=== PATIENT | female | born 1940 | race Caucasian/White ===

== ENCOUNTER → 2016-12-03 | Outpatient (CLI) | payer MEDICARE ==
[~2016-12-03] MED LIST: /AMIO20TA; ACET-71 PO; ACET65TA; ASPI81CH PO; ATOR1TAB21 PO; CALCCHW12; CETIRIZINE; CITRTAB15 PO; CLON0.5T; CODE30TA3 PO; FOSA5TAB; GLYC3350 PO; LODINE; MIRAPEX; OXYB5TAB4; PLAV75TA38 PO; POTA20TA2; SYNT112T; THERGRAN; VARE1TA PO; VENL37.5; VITA500T; ZEBE5TAB
[2016-12-03 07:21] LABS: MEAN CORPUSCULAR HEMOGLOBIN 32.7 pg (27.0-33.0); MEAN CORPUSCULAR HGB CONC 32.1 g/dl (32.0-36.5); MEAN CORPUSCULAR VOLUME 101.9 fl (80.0-96.0); WHITE BLOOD COUNT 9.3 K/mm3 (4.0-10.0)
[2016-12-03 07:58] LABS: ALBUMIN 3.5 GM/DL (3.2-5.2); ALBUMIN/GLOBULIN RATIO 0.95 (1.00-1.93); ALKALINE PHOSPHATASE 115 U/L (45-117); ALT/SGPT 25 U/L (12-78); ANION GAP 8 MEQ/L (8-16); AST/SGOT 23 U/L (15-37); BILIRUBIN,TOTAL 0.3 MG/DL (0.2-1.0); BLOOD UREA NITROGEN 18 MG/DL (7-18); CALCIUM LEVEL 8.8 MG/DL (8.8-10.2); CARBON DIOXIDE LEVEL 24 MEQ/L (21-32); CHLORIDE LEVEL 110 MEQ/L (98-107); CHOLESTEROL LEVEL 125 MG/DL (<200); CREATININE FOR GFR 0.73 MG/DL (0.55-1.02); FREE T4 1.63 NG/DL (0.76-1.46); GLOMERULAR FILTRATION RATE > 60.0 (>39); GLUCOSE, FASTING 89 MG/DL (83-110); POTASSIUM SERUM 4.1 MEQ/L (3.5-5.1); SODIUM LEVEL 142 MEQ/L (136-145); TOTAL PROTEIN 7.2 GM/DL (6.4-8.2); TRIGLYCERIDES LEVEL 64 MG/DL (<150)
== END ==
LOC: M LAB 06:25
PROVIDERS: ATTEND Hospitalist
DX: R53.83 Other fatigue (principal); E03.9 Hypothyroidism, unspecified; E78.00 Pure hypercholesterolemia, unspecified

== ENCOUNTER 2016-12-05 18:21 | Emergency (ER) | payer MEDICARE ==
[~2016-12-05] VITALS: Ht 162.6 cm; Wt 54.9 kg
[~2016-12-05 18:21] MED LIST changes: -ACET-71 PO; -ASPI81CH PO; -ATOR1TAB21 PO; -CITRTAB15 PO; -CODE30TA3 PO; -GLYC3350 PO; -PLAV75TA38 PO; -VARE1TA PO
[2016-12-05] MEDS ORDERED: VARE1TA PO (18:33)
[2016-12-05] MEDS ORDERED: PLAV75TA38 PO (18:33)
[2016-12-05] MEDS ORDERED: GLYC3350 PO (18:33)
[2016-12-05] MEDS ORDERED: CITRTAB15 PO (18:33)
[2016-12-05] MEDS ORDERED: ATOR1TAB21 PO (18:33)
[2016-12-05] MEDS ORDERED: ASPI81CH PO (18:33)
[2016-12-05] MEDS ORDERED: ACETAMINOPH W/CODEINE #3 TAB UD PO ONE (19:00)
[2016-12-05] MEDS ORDERED: ACET-71 PO (19:29)
[2016-12-05] MEDS ORDERED: CODE30TA3 PO (19:31)
[2016-12-05 20:09] VITALS: BP 138/74
--- NOTE | 2016-12-06 12:36 | REP ---
RIGHT FOOT: HISTORY: Pain after trauma. COMPARISON: 12/13/2007. The bones have undergone a certain degree of bony demineralization since the last exam. The degenerative changes seen on the prior exam have increased slightly. This particularly affects the first metatarsophalangeal joint where there is irregular joint space narrowing and osteophytosis. There is no evidence of an acute fracture. IMPRESSION: Chronic changes as described above. Signed by Jamie Jovel DO 12/06/2016 01:32 P
== END 2016-12-05 20:10 | disposition home or self-care (01) ==
LOC: M ED 19:30
DX: S90.31XA Contusion of right foot, initial encounter (principal); X50.0XXA Overexertion from strenuous movement or load, initial encounter; Y92.018 Other place in single-family (private) house as the place of occurrence of the external cause; Y93.89 Activity, other specified; Y99.8 Other external cause status; I48.91 Unspecified atrial fibrillation; I25.10 Atherosclerotic heart disease of native coronary artery without angina pectoris; E07.9 Disorder of thyroid, unspecified; Z79.899 Other long term (current) drug therapy; Z79.82 Long term (current) use of aspirin; Z79.02 Long term (current) use of antithrombotics/antiplatelets; Z88.0 Allergy status to penicillin; Z88.5 Allergy status to narcotic agent; F17.210 Nicotine dependence, cigarettes, uncomplicated

== ENCOUNTER → 2018-02-15 | Outpatient (REF) | payer MEDICARE ==
[2018-02-15 16:21] LABS: BLOOD UREA NITROGEN 12 MG/DL (7-18)
[2018-02-15 16:21] LABS: CREATININE FOR GFR 0.61 MG/DL (0.55-1.30); GLOMERULAR FILTRATION RATE > 60.0 (>39)
== END ==
LOC: M LABDRAW1 14:06
DX: I70.411 Atherosclerosis of autologous vein bypass graft(s) of the extremities with intermittent claudication, right leg (principal)
CPT/HCPCS: 82565

== ENCOUNTER → 2018-03-12 | Outpatient (REF) | payer MEDICARE ==
[2018-03-12 17:29] LABS: BASO # 0.1 10^3/uL (0.0-0.2); BASO % 0.9 % (0.0-1.0); EOS # 0.2 10^3/uL (0.0-0.50); EOS % 2.6 % (0.0-3.0); HEMATOCRIT 33.8 % (36.0-47.0); IMMATURE GRANULOCYTE % 0.3 % (0-3.0); LYMPH # 1.8 10^3/uL (1.5-4.5); LYMPH % 25.4 % (24.0-44.0); MEAN CORPUSCULAR HEMOGLOBIN 29.4 pg (27.0-33.0); MEAN CORPUSCULAR HGB CONC 32.5 g/dl (32.0-36.5); MEAN CORPUSCULAR VOLUME 90.4 fl (80.0-96.0); MONO # 0.9 10^3/uL (0.0-0.8); MONO % 12.6 % (0.0-5.0); NEUTROPHILS % 58.2 % (36.0-66.0); PLATELET COUNT, AUTOMATED 214 10^3/uL (150-450); RED BLOOD COUNT 3.74 10^6/uL (4.00-5.40); RED CELL DISTRIBUTION WIDTH 15.9 % (11.5-14.5); WHITE BLOOD COUNT 6.9 10^3/uL (4.0-10.0)
[2018-03-12 17:30] LABS: ANION GAP 7 MEQ/L (8-16); BLOOD UREA NITROGEN 16 MG/DL (7-18); CALCIUM LEVEL 8.3 MG/DL (8.8-10.2); CARBON DIOXIDE LEVEL 26 MEQ/L (21-32); CHLORIDE LEVEL 109 MEQ/L (98-107); CREATININE FOR GFR 0.65 MG/DL (0.55-1.30); GLOMERULAR FILTRATION RATE > 60.0 (>39); GLUCOSE, FASTING 81 MG/DL (70-100); POTASSIUM SERUM 4.1 MEQ/L (3.5-5.1); SODIUM LEVEL 142 MEQ/L (136-145)
[2018-03-12 17:50] LABS: INR 0.97
[2018-03-12 17:51] LABS: PARTIAL THROMBOPLASTIN TIME 28.7 SECONDS (25.4-37.6)
== END ==
LOC: M LABDRAW1 16:46
DX: Z01.818 Encounter for other preprocedural examination (principal); D69.8 Other specified hemorrhagic conditions
CPT/HCPCS: 80048

== ENCOUNTER 2018-03-28 10:36 | Inpatient (IN) | payer MEDICARE ==
[2018-03-28 11:24] LABS: BASO % 0.4 % (0.0-1.0); EOS # 0.1 10^3/uL (0.0-0.50); EOS % 1.6 % (0.0-3.0); HEMATOCRIT 20.9 % (36.0-47.0); IMMATURE GRANULOCYTE % 0.4 % (0-3.0); LYMPH # 1.3 10^3/uL (1.5-4.5); LYMPH % 17.5 % (24.0-44.0); MEAN CORPUSCULAR HEMOGLOBIN 29.8 pg (27.0-33.0); MEAN CORPUSCULAR HGB CONC 32.1 g/dl (32.0-36.5); MEAN CORPUSCULAR VOLUME 92.9 fl (80.0-96.0); MONO # 0.8 10^3/uL (0.0-0.8); MONO % 10.4 % (0.0-5.0); NEUTROPHILS # 5.2 10^3/uL (1.8-7.7); NEUTROPHILS % 69.7 % (36.0-66.0); PLATELET COUNT, AUTOMATED 242 10^3/uL (150-450); RED BLOOD COUNT 2.25 10^6/uL (4.00-5.40); RED CELL DISTRIBUTION WIDTH 17.2 % (11.5-14.5); WHITE BLOOD COUNT 7.5 10^3/uL (4.0-10.0)
[2018-03-28 11:37] LABS: HEMOGLOBIN 6.7 g/dl (12.0-15.5); INR 0.97
[2018-03-28 11:38] LABS: PARTIAL THROMBOPLASTIN TIME 26.6 SECONDS (25.4-37.6)
[2018-03-28 11:51] LABS: ANION GAP 9 MEQ/L (8-16); BLOOD UREA NITROGEN 21 MG/DL (7-18); CARBON DIOXIDE LEVEL 22 MEQ/L (21-32); CHLORIDE LEVEL 107 MEQ/L (98-107); CK-MB VALUE MASS < 1.0 NG/ML (<3.6); CPK CREATINE PHOSPHOKINASE 50 U/L (26-192); CREATININE FOR GFR 0.57 MG/DL (0.55-1.30); GLOMERULAR FILTRATION RATE > 60.0 (>39); GLUCOSE, FASTING 97 MG/DL (70-100); POTASSIUM SERUM 3.9 MEQ/L (3.5-5.1); SODIUM LEVEL 138 MEQ/L (136-145); TROPONIN I 0.05 NG/ML (< 0.10)
[2018-03-28] MEDS: PANTOPRAZOLE SODIUM 40 MG in D5W 50 ML IV ×3 (12:26→22:29)
[2018-03-28] MEDS: PANTOPRAZOLE 40MG INJ (PROTONIX) (C9113) IV (12:26)
[2018-03-28] MEDS: ONDANSETRON 4MG/2ML VIAL (J2405) IV (12:45)
[2018-03-28 14:09] LABS: IMMEDIATE SPIN CROSSMATCH 1 2
[2018-03-28] MEDS: NS 1,000 ML IV (14:51)
[2018-03-28] MEDS ORDERED: ONDANSETRON 4 MG TAB (S0181) PO (15:00)
[2018-03-28] MEDS ORDERED: ONDANSETRON 4MG/2ML VIAL (J2405) IV (15:00)
[2018-03-28 17:18] LABS: HEMATOCRIT 25.7 % (36.0-47.0); HEMOGLOBIN 8.5 g/dl (12.0-15.5)
[2018-03-28 17:35] LABS: CK-MB VALUE MASS < 1.0 NG/ML (<3.6); CPK CREATINE PHOSPHOKINASE 32 U/L (26-192); MB/CK RELATIVE INDEX 3.12 (< OR =4); TROPONIN I 0.06 NG/ML (< 0.10)
[2018-03-28] MEDS: LORazepam 2 MG/ML VIAL (J2060) IV ×2 (21:16→22:49)
[2018-03-28 21:29] LABS: HEMATOCRIT 27.9 % (36.0-47.0); HEMOGLOBIN 9.1 g/dl (12.0-15.5)
[2018-03-29 02:04] LABS: HEMATOCRIT 24.7 % (36.0-47.0); HEMOGLOBIN 8.1 g/dl (12.0-15.5)
[2018-03-29 02:31] LABS: CK-MB VALUE MASS 1.4 NG/ML (<3.6); CPK CREATINE PHOSPHOKINASE 47 U/L (26-192); MB/CK RELATIVE INDEX 2.97 (< OR =4); TROPONIN I 0.06 NG/ML (< 0.10)
[2018-03-29] MEDS: NS 1,000 ML IV ×3 (02:49→14:51)
[2018-03-29] MEDS: PANTOPRAZOLE SODIUM 40 MG in D5W 50 ML IV ×5 (03:27→22:45)
[2018-03-29 06:10] LABS: BASO # 0.1 10^3/uL (0.0-0.2); BASO % 0.8 % (0.0-1.0); EOS # 0.2 10^3/uL (0.0-0.50); EOS % 2.9 % (0.0-3.0); HEMATOCRIT 25.4 % (36.0-47.0); HEMATOCRIT 25.5 % (36.0-47.0); HEMOGLOBIN 8.3 g/dl (12.0-15.5); HEMOGLOBIN 8.4 g/dl (12.0-15.5); IMMATURE GRANULOCYTE % 0.2 % (0-3.0); LYMPH # 1.2 10^3/uL (1.5-4.5); LYMPH % 17.9 % (24.0-44.0); MEAN CORPUSCULAR HGB CONC 33.1 g/dl (32.0-36.5); MEAN CORPUSCULAR VOLUME 87.6 fl (80.0-96.0); MONO # 0.7 10^3/uL (0.0-0.8); MONO % 10.8 % (0.0-5.0); NEUTROPHILS # 4.4 10^3/uL (1.8-7.7); NEUTROPHILS % 67.4 % (36.0-66.0); PLATELET COUNT, AUTOMATED 198 10^3/uL (150-450); RED CELL DISTRIBUTION WIDTH 16.8 % (11.5-14.5); WHITE BLOOD COUNT 6.5 10^3/uL (4.0-10.0)
[2018-03-29 06:23] LABS: ANION GAP 9 MEQ/L (8-16); BLOOD UREA NITROGEN 15 MG/DL (7-18); CALCIUM LEVEL 7.7 MG/DL (8.8-10.2); CARBON DIOXIDE LEVEL 20 MEQ/L (21-32); CHLORIDE LEVEL 116 MEQ/L (98-107); CREATININE FOR GFR 0.64 MG/DL (0.55-1.30); GLOMERULAR FILTRATION RATE > 60.0 (>39); GLUCOSE, FASTING 74 MG/DL (70-100); POTASSIUM SERUM 3.8 MEQ/L (3.5-5.1); SODIUM LEVEL 145 MEQ/L (136-145)
[2018-03-29 08:09] LABS: IMMEDIATE SPIN CROSSMATCH 1 1
[2018-03-29] MEDS: LEVOTHYROXINE 100 MCG (0.1MG) VIAL IV (08:29)
[2018-03-29 09:38] LABS: CPK CREATINE PHOSPHOKINASE 108 U/L (26-192); TROPONIN I 0.05 NG/ML (< 0.10)
[2018-03-29 09:39] LABS: CK-MB VALUE MASS 1.9 NG/ML (<3.6); MB/CK RELATIVE INDEX 1.75 (< OR =4)
[2018-03-29 14:58] LABS: HEMATOCRIT 30.9 % (36.0-47.0); HEMOGLOBIN 10.2 g/dl (12.0-15.5)
[2018-03-29] MEDS ORDERED: PROPOFOL 200 MG/20 ML VIAL As Ordered (15:54)
[2018-03-29] MEDS ORDERED: LIDOCAINE 2% INJ 100 MG/5 ML SDV (FOR ANES.) As Ordered (15:54)
[2018-03-29] MEDS: PRAMIPEXOLE 1 MG TAB PO (18:34)
[2018-03-29 21:26] LABS: HEMATOCRIT 28.5 % (36.0-47.0); HEMOGLOBIN 9.3 g/dl (12.0-15.5)
[2018-03-30 03:24] LABS: BASO % 0.5 % (0.0-1.0); EOS # 0.2 10^3/uL (0.0-0.50); HEMATOCRIT 29.4 % (36.0-47.0); HEMOGLOBIN 9.7 g/dl (12.0-15.5); IMMATURE GRANULOCYTE % 0.3 % (0-3.0); LYMPH # 1.2 10^3/uL (1.5-4.5); LYMPH % 21.4 % (24.0-44.0); MEAN CORPUSCULAR HEMOGLOBIN 29.6 pg (27.0-33.0); MEAN CORPUSCULAR VOLUME 89.6 fl (80.0-96.0); MONO # 0.6 10^3/uL (0.0-0.8); MONO % 10.1 % (0.0-5.0); NEUTROPHILS # 3.7 10^3/uL (1.8-7.7); NEUTROPHILS % 64.7 % (36.0-66.0); PLATELET COUNT, AUTOMATED 186 10^3/uL (150-450); RED BLOOD COUNT 3.28 10^6/uL (4.00-5.40); RED CELL DISTRIBUTION WIDTH 16.3 % (11.5-14.5); WHITE BLOOD COUNT 5.8 10^3/uL (4.0-10.0)
[2018-03-30 03:52] LABS: ANION GAP 7 MEQ/L (8-16); BLOOD UREA NITROGEN 10 MG/DL (7-18); CALCIUM LEVEL 7.7 MG/DL (8.8-10.2); CARBON DIOXIDE LEVEL 22 MEQ/L (21-32); CHLORIDE LEVEL 117 MEQ/L (98-107); CREATININE FOR GFR 0.64 MG/DL (0.55-1.30); GLOMERULAR FILTRATION RATE > 60.0 (>39); GLUCOSE, FASTING 83 MG/DL (70-100); MAGNESIUM LEVEL 1.8 MG/DL (1.8-2.4); POTASSIUM SERUM 3.7 MEQ/L (3.5-5.1); SODIUM LEVEL 146 MEQ/L (136-145)
[2018-03-30] MEDS: PANTOPRAZOLE SODIUM 40 MG in D5W 50 ML IV ×3 (08:59→18:47)
[2018-03-30] MEDS: LEVOTHYROXINE 100 MCG (0.1MG) VIAL IV (08:59)
[2018-03-30] MEDS: PRAMIPEXOLE 0.25 MG TAB PO (09:00)
[2018-03-30 09:16] LABS: HEMATOCRIT 31.1 % (36.0-47.0); HEMOGLOBIN 10.3 g/dl (12.0-15.5)
[2018-03-30 14:53] LABS: HEMATOCRIT 28.6 % (36.0-47.0); HEMOGLOBIN 9.3 g/dl (12.0-15.5)
[2018-03-30] MEDS: PRAMIPEXOLE 1 MG TAB PO (15:36)
[2018-03-30 21:26] LABS: HEMATOCRIT 28.8 % (36.0-47.0); HEMOGLOBIN 9.6 g/dl (12.0-15.5)
[2018-03-31] MEDS: PANTOPRAZOLE SODIUM 40 MG in D5W 50 ML IV ×2 (00:41→06:22)
[2018-03-31 04:59] LABS: BASO % 0.6 % (0.0-1.0); EOS # 0.3 10^3/uL (0.0-0.50); EOS % 3.6 % (0.0-3.0); HEMOGLOBIN 10.2 g/dl (12.0-15.5); IMMATURE GRANULOCYTE % 0.6 % (0-3.0); LYMPH # 1.1 10^3/uL (1.5-4.5); LYMPH % 16.1 % (24.0-44.0); MEAN CORPUSCULAR HEMOGLOBIN 29.7 pg (27.0-33.0); MEAN CORPUSCULAR HGB CONC 32.9 g/dl (32.0-36.5); MEAN CORPUSCULAR VOLUME 90.1 fl (80.0-96.0); MONO # 0.8 10^3/uL (0.0-0.8); MONO % 11.5 % (0.0-5.0); NEUTROPHILS # 4.7 10^3/uL (1.8-7.7); NEUTROPHILS % 67.6 % (36.0-66.0); PLATELET COUNT, AUTOMATED 189 10^3/uL (150-450); RED BLOOD COUNT 3.44 10^6/uL (4.00-5.40); RED CELL DISTRIBUTION WIDTH 16.3 % (11.5-14.5); WHITE BLOOD COUNT 6.9 10^3/uL (4.0-10.0)
[2018-03-31 05:09] LABS: ANION GAP 8 MEQ/L (8-16); BLOOD UREA NITROGEN 8 MG/DL (7-18); CALCIUM LEVEL 7.9 MG/DL (8.8-10.2); CARBON DIOXIDE LEVEL 23 MEQ/L (21-32); CHLORIDE LEVEL 114 MEQ/L (98-107); CREATININE FOR GFR 0.57 MG/DL (0.55-1.30); GLOMERULAR FILTRATION RATE > 60.0 (>39); GLUCOSE, FASTING 89 MG/DL (70-100); MAGNESIUM LEVEL 1.9 MG/DL (1.8-2.4); POTASSIUM SERUM 3.5 MEQ/L (3.5-5.1); SODIUM LEVEL 145 MEQ/L (136-145)
[2018-03-31 09:14] LABS: HEMATOCRIT 33.5 % (36.0-47.0); HEMOGLOBIN 10.8 g/dl (12.0-15.5)
[2018-03-31] MEDS: LEVOTHYROXINE 100MCG TABLET (0.1MG) PO (09:21)
[2018-03-31] MEDS: PANTOPRAZOLE 40MG TAB (PROTONIX) PO (09:21)
[2018-03-31] MEDS: PRAMIPEXOLE 0.25 MG TAB PO (09:22)
[2018-03-31] MEDS ORDERED: ATORVASTATIN 20 MG TAB PO (21:00)
== END 2018-03-31 15:24 | disposition home or self-care (01) | DRG 378 ==
LOC: M ED 10:36 → M ED INP 14:51 → M PCU 16:33
PROC: 0DJ08ZZ Inspection of Upper Intestinal Tract, Via Natural or Artificial Opening Endoscopic (ICD-10-PCS; principal; 2018-03-29 07:50)
PROC: 30233N1 Transfusion of Nonautologous Red Blood Cells into Peripheral Vein, Percutaneous Approach (ICD-10-PCS; 2018-03-29 16:03)
DX: K92.2 Gastrointestinal hemorrhage, unspecified (principal); D62 Acute posthemorrhagic anemia; Z66 Do not resuscitate; K26.9 Duodenal ulcer, unspecified as acute or chronic, without hemorrhage or perforation; K25.9 Gastric ulcer, unspecified as acute or chronic, without hemorrhage or perforation; I73.9 Peripheral vascular disease, unspecified; Z95.0 Presence of cardiac pacemaker; G25.81 Restless legs syndrome; E03.9 Hypothyroidism, unspecified; I34.1 Nonrheumatic mitral (valve) prolapse; Z98.62 Peripheral vascular angioplasty status; F17.210 Nicotine dependence, cigarettes, uncomplicated; Z88.5 Allergy status to narcotic agent; Z88.0 Allergy status to penicillin; Z79.82 Long term (current) use of aspirin; Z79.02 Long term (current) use of antithrombotics/antiplatelets; Z79.899 Other long term (current) drug therapy

== ENCOUNTER → 2018-05-25 | Outpatient (REF) | payer MEDICARE ==
[2018-05-25 17:44] LABS: BASO # 0.1 10^3/uL (0.0-0.2); BASO % 0.9 % (0.0-1.0); EOS # 0.1 10^3/uL (0.0-0.50); EOS % 1.3 % (0.0-3.0); HEMATOCRIT 41.5 % (36.0-47.0); IMMATURE GRANULOCYTE % 0.3 % (0-3.0); LYMPH # 1.3 10^3/uL (1.5-4.5); LYMPH % 18.8 % (24.0-44.0); MEAN CORPUSCULAR HEMOGLOBIN 30.1 pg (27.0-33.0); MEAN CORPUSCULAR HGB CONC 31.3 g/dl (32.0-36.5); MEAN CORPUSCULAR VOLUME 96.1 fl (80.0-96.0); MONO # 0.9 10^3/uL (0.0-0.8); MONO % 12.3 % (0.0-5.0); NEUTROPHILS # 4.6 10^3/uL (1.8-7.7); NEUTROPHILS % 66.4 % (36.0-66.0); PLATELET COUNT, AUTOMATED 204 10^3/uL (150-450); RED BLOOD COUNT 4.32 10^6/uL (4.00-5.40); RED CELL DISTRIBUTION WIDTH 22.2 % (11.5-14.5); WHITE BLOOD COUNT 6.9 10^3/uL (4.0-10.0)
[2018-05-25 18:55] LABS: ERYTHROCYTE SEDIMENTATION RATE 26 mm/hr (0-30)
[2018-05-25 22:22] LABS: FREE T4 1.62 NG/DL (0.76-1.46); FREE THYROXINE INDEX 3.9 % (1.3-4.8); RHEUMATOID FACTOR QUANT < 10.0 IU/ML (<15.0); T UPTAKE 25 % (30-39); THYROXINE (T4) 15.5 UG/DL (4.5-12.0); TOTAL PROTEIN 7.9 GM/DL (6.4-8.2)
[2018-05-25 22:23] LABS: FOLATE 20.3 NG/ML
[2018-05-25 22:43] LABS: ESTIMATED AVERAGE GLUCOSE 103 MG/DL (60-110); HEMOGLOBIN A1c 5.2 %
[2018-05-27 11:16] LABS: ALBUMIN 3.91 GM/DL (3.29-5.55); ALBUMIN % 49.5 % (55.8-66.1); ALPHA-1-GLOBULIN % 4.6 % (2.9-4.9); ALPHA-1-GLOBULINS 0.36 GM/DL (0.17-0.41); ALPHA-2-GLOBULINS 0.92 GM/DL (0.42-0.99); ALPHA-2-GLOBULINS % 11.6 % (7.1-11.8); BETA-1-GLOBULINS 0.51 GM/DL (0.28-0.60); BETA-1-GLOBULINS % 6.4 % (4.7-7.2); BETA-2-GLOBULINS 0.34 GM/DL (0.19-0.55); BETA-2-GLOBULINS % 4.3 % (3.2-6.5); GAMMA GLOBULIN % 23.6 % (11.1-18.8); GAMMA GLOBULINS 1.86 GM/DL (0.65-1.58)
[2018-05-27 14:13] LABS: ANTI DOUBLE STRAND-DNA AB 16 IU/mL (0-9); ANTINUCLEAR ANTIBODIES DIRECT Positive (Negative); RNP ANTIBODIES 0.3 AI (0.0-0.9); SJOGREN'S ANTI SS-A 0.2 AI (0.0-0.9); SJOGREN'S ANTI SS-B <0.2 AI (0.0-0.9); SMITH ANTIBODIES <0.2 AI (0.0-0.9)
[2018-06-01 00:06] LABS: VITAMIN B6,PYRIDOXAL PHOSPHATE 3.1 ug/L (2.0-32.8)
[2018-06-01 00:06] LABS: VITAMIN B1 LEVEL WHOLE BLOOD 143.7 nmol/L (66.5-200.0)
[2018-06-02 10:53] LABS: DRVV SCREEN 38.8 SEC
[2018-06-02 10:58] LABS: PTT LUPUS TYPE ANTICOAG SCREEN 0.9 (0-1.2)
== END ==
LOC: M LABNEURO 13:42
DX: G62.9 Polyneuropathy, unspecified (principal)
CPT/HCPCS: 82746

== ENCOUNTER → 2018-06-02 | Outpatient (CLI) | payer MEDICARE | LOC: M RAD 10:54 | DX: I73.9 Peripheral vascular disease, unspecified (principal) | CPT/HCPCS: 93925 ==

== ENCOUNTER → 2018-11-15 | Outpatient (REF) | payer MEDICARE ==
[~2018-11-15] MED LIST changes: -/AMIO20TA; +ACET1TAB16 PO; +ACET300T47 PO; +AMIO1TAB; +ASPI81CH49 PO; +ASPI81TA26 PO; +ATOR1TAB21 PO; +ATOR40TA75 PO; +CITRTAB15 PO; +GLYC3350 PO; +LEVO100T5 PO; +MIRA0.5T PO; +PANT40TA3 PO; +PLAV1TAB2 PO; +PRAM0.5T7 PO; +VARE1TA PO
== END ==
LOC: M SFHCPLAZ 14:46
PROVIDERS: ATTEND Internal Medicine Rheumatology
DX: R76.8 Other specified abnormal immunological findings in serum (principal)

== ENCOUNTER → 2018-11-25 | Outpatient (REF) | payer MEDICARE ==
[2018-11-25 17:08] LABS: BLOOD UREA NITROGEN 14 MG/DL (7-18); COMPLEMENT C3 115 MG/DL (90-180); COMPLEMENT C4 18 MG/DL (10-40); CREATININE FOR GFR 0.72 MG/DL (0.55-1.30); GLOMERULAR FILTRATION RATE > 60.0 (>39)
[2018-11-25 17:20] LABS: BASO # 0.1 10^3/uL (0.0-0.2); BASO % 0.8 % (0.0-1.0); EOS # 0.1 10^3/uL (0.0-0.50); HEMATOCRIT 39.5 % (36.0-47.0); HEMOGLOBIN 12.7 g/dl (12.0-15.5); LYMPH # 1.3 10^3/uL (1.5-4.5); LYMPH % 20.1 % (24.0-44.0); MEAN CORPUSCULAR HEMOGLOBIN 29.9 pg (27.0-33.0); MEAN CORPUSCULAR HGB CONC 32.2 g/dl (32.0-36.5); MEAN CORPUSCULAR VOLUME 92.9 fl (80.0-96.0); MONO # 0.7 10^3/uL (0.0-0.8); MONO % 11.1 % (0.0-5.0); NEUTROPHILS # 4.2 10^3/uL (1.8-7.7); NEUTROPHILS % 66.8 % (36.0-66.0); PLATELET COUNT, AUTOMATED 172 10^3/uL (150-450); RED BLOOD COUNT 4.25 10^6/uL (4.00-5.40); WHITE BLOOD COUNT 6.2 10^3/uL (4.0-10.0)
[2018-11-25 17:35] LABS: CREATININE,RANDOM URINE 82.5 MG/DL; TOTAL PROTEIN,RANDOM URINE 6.1 MG/DL (0.0-12.0)
[2018-11-25 17:45] LABS: APPEARANCE, URINE CLOUDY (CLEAR); BACTERIA, URINE AUTO 1+ (NEGATIVE); BILIRUBIN, URINE AUTO NEGATIVE (NEGATIVE); BLOOD, URINE BLOOD NEGATIVE (NEGATIVE); COLOR, URINE YELLOW (YELLOW); GLUCOSE, URINE (UA) AUTO NEGATIVE (NEGATIVE); KETONE, URINE AUTO NEGATIVE (NEGATIVE); LEUKOCYTE ESTERASE, URINE AUTO 2+ (NEGATIVE); MUCUS, URINE SMALL (NEGATIVE); NITRITE, URINE AUTO NEGATIVE (NEGATIVE); PROTEIN, URINE AUTO NEGATIVE (NEGATIVE); RBC, URINE AUTO 3 /HPF (0-3); SPECIFIC GRAVITY URINE AUTO 1.012 (1.002-1.035); SQUAMOUS EPITHELIAL CELL UR AU 8 /HPF (0-6); UROBILINOGEN, URINE AUTO 0.2 mg/dL (0.0-2.0); WBC, URINE AUTO 11 /HPF (0-3)
== END ==
LOC: M LABDRAW1 16:07
PROVIDERS: ATTEND Internal Medicine Rheumatology
DX: R76.8 Other specified abnormal immunological findings in serum (principal)

== ENCOUNTER → 2018-12-03 | Outpatient (CLI) | payer MEDICARE ==
--- NOTE | 2018-12-03 19:46 | REP ---
BILATERAL LOWER EXTREMITY DUPLEX DOPPLER ARTERIAL ULTRASOUND: Real-time ultrasound evaluation and duplex Doppler interrogation of bilateral lower extremity arterial systems is performed. ANA right is 0.86 and on the left is 0.8. Biphasic waveforms are seen throughout both lower extremity arterial systems. Somewhat elevated peak systolic velocity is seen in the common femoral arteries and profunda arteries bilaterally suggesting stenosis of these vessels. There is elevation of the peak systolic velocity in the mid left superficial femoral artery suggesting stenosis at that location. The findings are similar compared to the prior study of 06/02/2018. Right PSV Left PSV Common femoral artery 150.9 cm/s 247.9 cm/s Profunda 229.1 cm/s 189.1 cm/s Proximal SFA 84.1 cm/s 123.1 cm/s Mid SFA 61.1 cm/s 214.7 cm/s Distal SFA 49.2 cm/s 122.2 cm/s Popliteal 44.8 cm/s 106.6 cm/s Proximal LELO 24.8 cm/s 26.8 cm/s Tibial peroneal trunk 32.7 cm/s 63.4 cm/s Proximal OXIDATION OPERATOR 39.0 cm/s 53.7 cm/s Distal OXIDATION OPERATOR 41.4 cm/s 44.0 cm/s Distal LELO 24.7 cm/s 27.3 cm/s IMPRESSION: Once again there appears to be some degree of stenosis of the common femoral arteries and profunda arteries bilaterally as well as the mid left SFA. Findings are quite similar to prior study of 06/02/2018. Electronically Signed by Davis Faulkner MD 12/04/2018 03:08 P
== END ==
LOC: M RAD 12:49
PROVIDERS: ATTEND Surgery Vascular Surgery
DX: I70.213 Atherosclerosis of native arteries of extremities with intermittent claudication, bilateral legs (principal)

== ENCOUNTER → 2019-05-24 | Outpatient (REF) | payer MEDICARE ==
[2019-05-24 13:25] LABS: BLOOD UREA NITROGEN 15 MG/DL (7-18); CREATININE FOR GFR 0.68 MG/DL (0.55-1.30); GLOMERULAR FILTRATION RATE > 60.0 (>39)
== END ==
LOC: M LABNEURO 11:41
PROVIDERS: ATTEND Psychiatry & Neurology Neurology
DX: I10 Essential (primary) hypertension (principal)

== ENCOUNTER → 2019-07-11 | Outpatient (REF) | payer MEDICARE ==
[~2019-07-11] MED LIST changes: +ATOR80TA59 PO; +BONI1TAB PO; +CARB25TA9 PO; +CLOP75TA2 PO; +GABA-845 PO; +LEVO50TA5 PO; +MIRA3350 PO; +ROPI2TAB PO
== END ==
LOC: M LAB REF 16:41
PROVIDERS: ATTEND Internal Medicine
DX: Z11.59 Encounter for screening for other viral diseases (principal)

== ENCOUNTER → 2019-09-16 | Outpatient (CLI) | payer MEDICARE ==
[~2019-09-16] MED LIST changes: +BACL10TA2 PO; -ROPI2TAB PO; +ROPI2TAB3 PO; +VITAD1000T PO
== END ==
LOC: M RAD 12:48
PROVIDERS: ATTEND Surgery Vascular Surgery
DX: I70.213 Atherosclerosis of native arteries of extremities with intermittent claudication, bilateral legs (principal)

== ENCOUNTER 2019-09-23 11:14 | Day surgery (SDC) | payer MEDICARE ==
[~2019-09-23] VITALS: Ht 162.6 cm; Wt 51.3 kg
[~2019-09-23 11:14] MED LIST changes: +LR 500 ML IV ONE; +VANCOMYCIN HCL 750 MG, VIAL MATE ADAPTER 1 EACH in D5W 250 ML IV ONE
[2019-09-23] MEDS ORDERED: VANCOMYCIN 1000 MG/20 ML VIAL (J3370) As Ordered ONE (12:08)
[2019-09-23] MEDS ORDERED: LIDOCAINE 1% SDV INJ 30 ML VIAL As Ordered ONE (12:08)
[2019-09-23] MEDS ORDERED: NEOSPORIN TOP OINT 15GM As Ordered ONE (12:08)
[2019-09-23] MEDS ORDERED: propofoL 200 MG/20 ML VIAL As Ordered ONE (12:19)
[2019-09-23] MEDS ORDERED: fentaNYL 100 MCG/2 ML INJECTION (J3010) As Ordered ONE (12:19)
[2019-09-23] MEDS ORDERED: LIDOCAINE 2% INJ 100 MG/5 ML SDV (FOR ANES.) As Ordered ONE (12:19)
[2019-09-23] MEDS ORDERED: MIDAZOLAM INJ 2 MG/2 ML VIAL (J2250) As Ordered ONE (12:19)
[2019-09-23] MEDS ORDERED: ONDANSETRON 4MG/2ML VIAL (J2405) As Ordered ONE (12:19)
[2019-09-23] MEDS ORDERED: KETAMINE HCL 200 MG/20 ML VIAL As Ordered ONE (13:17)
[2019-09-23] MEDS ORDERED: LABETALOL HCL 100 MG/20 ML VIAL As Ordered ONE (13:22)
[2019-09-23] MEDS ORDERED: GLYCOPYRROLATE INJ 0.2 MG/ML 2 ML VIAL As Ordered ONE (13:29)
[2019-09-23] MEDS ORDERED: ePHEDrine SULFATE 25 MG/5 ML(5MG/ML) SYRINGE As Ordered ONE (13:39)
[2019-09-23] MEDS ORDERED: dexameTHASONE 4 MG/ML 1ML VIAL (J1100) As Ordered ONE (13:47)
--- NOTE | 2019-09-23 14:58 | RO ---
DATE OF PROCEDURE: 09/23/2019 PREPROCEDURE DIAGNOSIS: Pacemaker battery depletion. POSTPROCEDURE DIAGNOSIS: Pacemaker battery depletion. FINDINGS: Pacemaker battery depletion. PROCEDURE: Explantation of old and implantation of new dual chamber pacemaker pulse generator. SURGEON: Derek Raya MD PAY AGENT: None. ANESTHESIA: Lidocaine 1% local/monitored anesthetic care. SPECIMENS: Old [employer] dual chamber pacemaker pulse generator. ESTIMATED BLOOD LOSS: Less than 5 mL. No blood products replaced. DRAINS: No drains. COMPLICATIONS: No complications. PROCEDURE DESCRIPTION: The patient was prepped and draped over the left pectoral region. 3M Ioban film was applied. Lidocaine 1% was used as a local anesthetic. An incision was made with a PEAK PlasmaBlade through the skin about 2 cm caudal to the original incision line and parallel to the original incision line over top of the pacemaker pulse generatory. The PEAK PlasmaBlade was used to dissect down to the level of the anterior capsule. The anterior capsule was then dissected through using fine dissection scissors. The suture holding down the existing pacemaker pulse generator was then snipped. The existing pacemaker pulse generator was then removed from the pocket. The terminal pins were loosened by loosening the set screws. The existing atrial and ventricular leads were tested in the operating room and found to be satisfactory for chronic leads. I then used the PEAK PlasmaBlade to help dissect some of the adhesions in the pacemaker pocket from the pacemaker leads. I expanded the caudal aspect of the pacemaker pocket a small amount using blunt dissection using two fingers. The existing terminal pins were placed into their respective ports in the new pacemaker pulse generator header and secured with the hex screwdriver to tighten the set screws. I took a TYRX antimicrobial envelope and cut it into six pieces which were placed into the floor of the pacemaker pocket. The excess lead material was then coiled underneath the pacemaker pulse generator and placed along with new pacemaker pulse generator into the pacemaker pocket. The deep layer was closed using individual sutures consisting of #2-0 Vicryl. The skin was then approximated using a #4-0 Biosyn suture subcuticular with the free ends of the suture material protruding 1 cm beyond either end of the suture line. I then used a Prineo dressing and cut the free ends of the suture material at the level of the skin both sites. The patient tolerated the procedure well without any immediate complications. The TYRX envelope used was reference #[id number], lot #[id number]. The new pacemaker pulse generator implanted was a [employer] Assurity MRI model #VM3470 with serial #[id number]. The existing pacemaker pulse generator that was removed was a [employer] [place] model #5826 with serial #[id number], originally implanted by Dr. Raya 10/29/2009. The existing atrial lead was a [employer] model #1784T with serial #[id number], originally implanted 10/29/2009. Testing in the operating room with the pulse analyzer showed the atrial lead capture threshold of 0.6 volts in 0.4 milliseconds with P wave amplitude of 4.3 millivolts and impedance of 388 ohms. The existing ventricle lead was a [employer] model #1888T with serial #[id number] originally implanted 10/29/2009. Pulse analyzer testing for the right ventricle lead showed a capture threshold of 1.3 volts in 0.4 milliseconds with R wave amplitude of 11.2 millivolts and lead impedance of 416 ohms. cc: Ruth Palafox MD
[2019-09-23 15:40] VITALS: BP 147/65
== END 2019-09-23 15:50 | disposition home or self-care (01) ==
LOC: M SDC 11:14
PROVIDERS: ATTEND Internal Medicine Cardiovascular Disease
DX: Z45.010 Encounter for checking and testing of cardiac pacemaker pulse generator [battery] (principal); E03.9 Hypothyroidism, unspecified; E78.5 Hyperlipidemia, unspecified; I71.4 Abdominal aortic aneurysm, without rupture; K21.9 Gastro-esophageal reflux disease without esophagitis; G47.30 Sleep apnea, unspecified; F17.218 Nicotine dependence, cigarettes, with other nicotine-induced disorders; Z88.5 Allergy status to narcotic agent; Z88.0 Allergy status to penicillin; Z88.8 Allergy status to other drugs, medicaments and biological substances; Z79.02 Long term (current) use of antithrombotics/antiplatelets; Z79.899 Other long term (current) drug therapy
CPT/HCPCS: 33228; C1785; J1100; J2250; J2405; J3010; J3370

== ENCOUNTER → 2019-10-10 | Outpatient (REF) | payer MEDICARE ==
[~2019-10-10] MED LIST changes: -LR 500 ML IV ONE; -VANCOMYCIN HCL 750 MG, VIAL MATE ADAPTER 1 EACH in D5W 250 ML IV ONE
[2019-10-12 10:56] LABS: HEPATITIS A ANTIBODY IGM NEGATIVE (NEGATIVE); HEPATITIS B CORE ANTIBODY IGM NEGATIVE (NEGATIVE); HEPATITIS B SURFACE ANTIGEN NEGATIVE (NEGATIVE); HEPATITIS C VIRUS ABY INDEX < 0.0 INDEX (<0.8)
== END ==
LOC: M LAB REF 12:11
PROVIDERS: ATTEND Internal Medicine
DX: R74.8 Abnormal levels of other serum enzymes (principal); Z79.899 Other long term (current) drug therapy

== ENCOUNTER → 2019-11-23 | Outpatient (CLI) | payer MEDICARE ==
[2019-11-23 15:41] LABS: ALBUMIN 3.3 GM/DL (3.2-5.2); ALT/SGPT 27 U/L (12-78); BILIRUBIN,TOTAL 0.4 MG/DL (0.2-1.0); BLOOD UREA NITROGEN 16 MG/DL (7-18); CALCIUM LEVEL 8.8 MG/DL (8.8-10.2); CARBON DIOXIDE LEVEL 28 MEQ/L (21-32); CHLORIDE LEVEL 106 MEQ/L (98-107); CREATININE FOR GFR 0.65 MG/DL (0.55-1.30); GLOMERULAR FILTRATION RATE > 60.0 (>39); GLUCOSE, FASTING 95 MG/DL (70-100); POTASSIUM SERUM 4.2 MEQ/L (3.5-5.1); SODIUM LEVEL 140 MEQ/L (136-145); TOTAL PROTEIN 7.4 GM/DL (6.4-8.2)
== END ==
LOC: M LAB 14:39
PROVIDERS: ATTEND Nurse Practitioner Family
DX: E78.5 Hyperlipidemia, unspecified (principal)

== ENCOUNTER → 2019-12-23 | Outpatient (REF) | payer MEDICARE ==
[2019-12-23 17:08] LABS: APPEARANCE, URINE CLEAR (CLEAR); BACTERIA, URINE AUTO NEGATIVE (NEGATIVE); BILIRUBIN, URINE AUTO NEGATIVE (NEGATIVE); BLOOD, URINE BLOOD NEGATIVE (NEGATIVE); COLOR, URINE STRAW (YELLOW); GLUCOSE, URINE (UA) AUTO NEGATIVE (NEGATIVE); KETONE, URINE AUTO NEGATIVE (NEGATIVE); LEUKOCYTE ESTERASE, URINE AUTO NEGATIVE (NEGATIVE); NITRITE, URINE AUTO NEGATIVE (NEGATIVE); PROTEIN, URINE AUTO NEGATIVE (NEGATIVE); RBC, URINE AUTO 1 /HPF (0-3); SPECIFIC GRAVITY URINE AUTO 1.004 (1.002-1.035); SQUAMOUS EPITHELIAL CELL UR AU 0 /HPF (0-6); UROBILINOGEN, URINE AUTO 0.2 mg/dL (0.0-2.0); WBC, URINE AUTO 1 /HPF (0-3)
[2019-12-23 17:09] LABS: ALBUMIN 3.7 GM/DL (3.2-5.2); ALT/SGPT 29 U/L (12-78); BILIRUBIN,TOTAL 0.5 MG/DL (0.2-1.0); BLOOD UREA NITROGEN 18 MG/DL (7-18); CALCIUM LEVEL 8.9 MG/DL (8.8-10.2); CARBON DIOXIDE LEVEL 28 MEQ/L (21-32); CHLORIDE LEVEL 106 MEQ/L (98-107); COMPLEMENT C3 107 MG/DL (90-180); COMPLEMENT C4 15 MG/DL (10-40); GLOMERULAR FILTRATION RATE > 60.0 (>39); GLUCOSE, FASTING 76 MG/DL (70-100); POTASSIUM SERUM 4.1 MEQ/L (3.5-5.1); SODIUM LEVEL 139 MEQ/L (136-145); TOTAL PROTEIN 8.2 GM/DL (6.4-8.2)
[2019-12-23 17:13] LABS: BASO % 0.7 % (0.0-1.0); EOS # 0.1 10^3/uL (0.0-0.5); EOS % 1.9 % (0.0-3.0); HEMOGLOBIN 11.8 g/dl (12.0-15.5); LYMPH # 1.3 10^3/uL (1.5-5.0); LYMPH % 21.9 % (24.0-44.0); MEAN CORPUSCULAR HEMOGLOBIN 27.8 pg (27.0-33.0); MEAN CORPUSCULAR HGB CONC 31.1 g/dl (32.0-36.5); MEAN CORPUSCULAR VOLUME 89.4 fl (80.0-96.0); MONO # 0.7 10^3/uL (0.0-0.8); MONO % 11.6 % (0.0-5.0); NEUTROPHILS # 3.8 10^3/uL (1.5-8.5); NEUTROPHILS % 63.7 % (36.0-66.0); PLATELET COUNT, AUTOMATED 186 10^3/uL (150-450); RED BLOOD COUNT 4.25 10^6/uL (4.00-5.40); WHITE BLOOD COUNT 5.9 10^3/uL (4.0-10.0)
[2019-12-23 19:07] LABS: ERYTHROCYTE SEDIMENTATION RATE 37 mm/hr (0-30)
== END ==
LOC: M SFHCRHEU 13:49
PROVIDERS: ATTEND Internal Medicine
DX: R76.8 Other specified abnormal immunological findings in serum (principal)

== ENCOUNTER → 2020-01-12 | Outpatient (REF) | payer MEDICARE ==
[2020-01-13 18:08] LABS: PERCENT SATURATION 12.1 % (13.2-45.0)
== END ==
LOC: M LAB REF 17:39
PROVIDERS: ATTEND Internal Medicine
DX: D50.9 Iron deficiency anemia, unspecified (principal)

== ENCOUNTER → 2020-03-07 | Outpatient (POV) | payer MEDICARE ==
[~2020-03-07] MED LIST changes: +D31000TA2 PO; +PANT40TA29 PO; -PANT40TA3 PO; -VITAD1000T PO
== END ==
LOC: M PAIN 09:00
PROVIDERS: ATTEND Nurse Practitioner Family
DX: M54.5 Low back pain (principal)

== ENCOUNTER → 2020-04-12 | Outpatient (CLI) | payer MEDICARE ==
--- NOTE | 2020-05-02 11:29 | REP ---
BILATERAL LOWER EXTREMITY ARTERIAL ULTRASOUND CLINICAL: History of atherosclerotic disease with bypass graft placement. TECHNIQUE: Real-time finley scale and color Doppler evaluation using linear high frequency transducer. FINDINGS: Moderate mixed partially calcified atheromatous plaquing is noted bilaterally. There is evidence for a right superficial femoral artery to popliteal artery bypass graft, which appears patent and with no visible stenosis demonstrating biphasic wave patterns. Velocity at the SFA anastomosis measures 137 cm/s with velocity through the mid graft at 86 cm/s and velocity at the distal popliteal anastomosis at 65 cm/s. Right lower extremity [place] arteries demonstrates moderate atheromatous plaquing. There is a focal area of occlusion at the mid superficial femoral artery with reversed revascularization by the bypass graft. There is also evidence for 2:1 stenosis at the level of the right profunda. The left lower extremity demonstrates moderate atheromatous plaquing along with mild stenosis at the proximal superficial femoral artery and 2.6:1 stenosis at the distal superficial femoral artery. RIGHT (cm/s) LEFT (cm/s) ANA 0.9 0.9 Common femoral artery 167 biphasic 172 biphasic Profunda 361 biphasic 151 biphasic Proximal SFA 133 biphasic 199 biphasic Mid SFA Occluded 162 biphasic Distal SFA 28 biphasic 277 biphasic Popliteal 72 biphasic 86 biphasic Proximal LELO 94 biphasic 81 biphasic Tibioperoneal trunk 69 biphasic 72 biphasic Proximal MILANESE KNITTING MACHINE OPERATOR 72 biphasic 48 biphasic Distal MILANESE KNITTING MACHINE OPERATOR 93 biphasic 66 biphasic Distal LELO 48 biphasic 25 biphasic IMPRESSION: * Moderate bilateral atheromatous plaquing with areas of occlusion and stenosis as described above. * Patent right superficial femoral artery to popliteal artery bypass graft. MTDD
== END ==
LOC: M RAD 12:59
PROVIDERS: ATTEND Surgery Vascular Surgery
DX: I70.213 Atherosclerosis of native arteries of extremities with intermittent claudication, bilateral legs (principal)

== ENCOUNTER → 2020-04-30 | Outpatient (CLI) | payer MEDICARE | LOC: M PAIN 09:55 | PROVIDERS: ATTEND Nurse Practitioner Family | DX: M47.817 Spondylosis without myelopathy or radiculopathy, lumbosacral region (principal); G89.29 Other chronic pain; F17.200 Nicotine dependence, unspecified, uncomplicated; Z79.899 Other long term (current) drug therapy ==

== ENCOUNTER → 2020-05-09 | Outpatient (CLI) | payer MEDICARE | LOC: M LABSMTC 14:23 | PROVIDERS: ATTEND Anesthesiology | DX: Z11.59 Encounter for screening for other viral diseases (principal) | CPT/HCPCS: C9803; U0003 ==

== ENCOUNTER → 2020-10-23 | Outpatient (CLI) | payer MEDICARE ==
--- NOTE | 2020-10-23 16:09 | REP ---
INDICATION: ATH MEGAN ART OF EXT WITH INTRMT BREN BI LEGS. COMPARISON: Comparison study April 12, 2020.. TECHNIQUE: Bilateral lower extremity arterial Doppler ultrasound. Aorta iliac assessment is included. FINDINGS: The distal abdominal aorta is ectatic, demonstrating 27 centimeters/second peak systolic flow velocity. There is a stenosis seen at the origin of the left common iliac artery with peak systolic flow velocity here 390 centimeters/second. The left external iliac artery PSV is 157 cm/S. Right common iliac artery peak systolic flow velocity is 178 cm/S and right external iliac artery PSV is 201 centimeters/second. The ankle brachial indices are 0.92 on the right and 0.85 on the left. In the right lower extremity moderate plaquing is seen in the common femoral artery. There is a 3-1 velocity ratio stenosis at the proximal profundal on the right. A patent bypass graft is seen from the proximal mid superficial femoral artery to the popliteal at the knee. No stenosis is seen. We biphasic arterial waveforms are noted except for the profunda there is a left femoral artery on the right and the distal anterior tibial artery which is which are monophasic. In the left lower extremity moderate plaquing is seen throughout. Mild luminal narrowing and mild increased velocity in the mid SFA. No other significant stenosis seen. Monophasic waveforms are seen in the distal posterior tibial and distal anterior tibial arteries. Right lower extremity arterial Doppler velocity chart: Right ELECTRICAL CAD TECHNICIAN PSV 137 cm/S Profundal 338 Proximal SFA 115 Mid SFA 181-136 SFA graft 73 Popliteal 51-70 Proximal LELO 62 Tibial-peroneal trunk 72 Proximal FORMS BUILDER 128 Distal FORMS BUILDER 79 Distal LELO 34 Left lower extremity arterial Doppler velocity chart: Left ELECTRICAL CAD TECHNICIAN PSV 161 cm/S Profundal 61 Proximal SFA 118 Mid SFA 283 Distal SFA 80 Popliteal 90 Proximal LELO 37 Tibial-peroneal trunk 61 Proximal FORMS BUILDER 47 Distal FORMS BUILDER 50 Distal LELO 24 IMPRESSION: Atherosclerotic disease as noted above. Evidence of a 3-1 velocity ratio stenosis in the proximal profundal a on the right. There is evidence of a left common iliac artery stenosis as well. <Electronically signed by Austen Finney > 10/23/20 [id number]
== END ==
LOC: M RAD 11:38
PROVIDERS: ATTEND Physician Assistant
DX: I70.213 Atherosclerosis of native arteries of extremities with intermittent claudication, bilateral legs (principal); Z79.899 Other long term (current) drug therapy

== ENCOUNTER → 2020-12-04 | Outpatient (CLI) | payer MEDICARE ==
[~2020-12-04] MED LIST changes: +ELIQ2.5T PO; +FERR324T2 PO; +ISOVUE-300 61% 50ML VIAL As Ordered ONE; +LIDOCAINE 1% MDV 20ML VIAL As Ordered ONE; +MIDAZOLAM INJ 2MG/2ML VIAL (J2250 PER 1MG) As Ordered ONE; +ONDANSETRON 4MG/2ML VIAL As Ordered ONE; +fentaNYL 100 MCG/2 ML INJECTION (J3010) As Ordered ONE
[2020-12-04 09:13] LABS: HEMATOCRIT 32.1 % (36.0-47.0); HEMOGLOBIN 9.8 g/dl (12.0-15.5); MEAN CORPUSCULAR HEMOGLOBIN 28.7 pg (27.0-33.0); MEAN CORPUSCULAR HGB CONC 30.5 g/dl (32.0-36.5); MEAN CORPUSCULAR VOLUME 93.9 fl (80.0-96.0); PLATELET COUNT, AUTOMATED 233 10^3/uL (150-450); RED BLOOD COUNT 3.42 10^6/uL (4.00-5.40); WHITE BLOOD COUNT 7.1 10^3/uL (4.0-10.0)
[2020-12-04 09:32] LABS: BLOOD UREA NITROGEN 19 MG/DL (7-18); CALCIUM LEVEL 8.8 MG/DL (8.8-10.2); CARBON DIOXIDE LEVEL 26 MEQ/L (21-32); CHLORIDE LEVEL 109 MEQ/L (98-107); CREATININE FOR GFR 0.66 MG/DL (0.55-1.30); GLOMERULAR FILTRATION RATE > 60.0 (>32); GLUCOSE, FASTING 88 MG/DL (70-100); POTASSIUM SERUM 3.5 MEQ/L (3.5-5.1); SODIUM LEVEL 140 MEQ/L (136-145)
--- NOTE | 2020-12-04 10:38 | ROOPDOC ---
[facility] Report Of Operation Report of Operation DATE OF PROCEDURE: 12/04/20 PREPROCEDURE DIAGNOSES: Atherosclerosis of the [place] arteries with lifestyle limiting claudication left lower extremity POSTPROCEDURE DIAGNOSES: Same PROCEDURE: 1. Ultrasound-guided access right common femoral artery 2. Aortoiliofemoral arteriogram and oblique imaging of the left iliac system after selection of the left common iliac artery 3. Selection left common femoral artery and superficial femoral artery with left lower extremity runoff 4. Angioplasty left superficial femoral artery with 4 x 220 Uday balloon 5. Completion arteriograms left lower extremity 6. Mynx closure right common femoral artery SURGEON: Lucina Velásquez MD ANESTHESIA: Local anesthesia 4cc lidocaine. Moderate intravenous conscious sedation was supervised by Dr. Velásquez. The patient was independently monitored by registered nurse assigned at the Department of radiology using automated blood pressure, EKG, and pulse oximetry. The detailed sedation record is permanently stored in the hospital information system. The following is a brief sedation record: Start time 09:31, stop time 10:26, Versed 0.5 mg IV, fentanyl 25 g IV, heparin 3000 units IV. CONTRAST: 40 mL Isovue-300 INDICATION FOR PROCEDURE: This is a very pleasant 80-year-old patient with atherosclerosis the [place] arteries and micelle limiting claudication left lower extremity. The patient also has spinal stenosis and neuropathic pain in the legs, but she does describe in the left lower extremity classic symptoms of claudication. She does not describe as significant of symptoms in the right lower extremity. Risks benefits and alternatives to an arteriogram of the left lower extremity with potential intervention were explained. The patient was agreeable to proceed. Informed consent was obtained. INTERPRETATION: 1. 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 The patient has pre- existing common iliac artery stents that have mild in-stent stenosis due to in timal hyperplasia, but overall patent with no flow limitation. There is approximately 30% stenosis at the origin of the left common iliac artery within the stent, mild 20-30% stenoses throughout both stents, no significant stenosis in the external iliac arteries distal to the stents. The patient's vessels are diminutive in size. The right hypogastric is open, the left hypogastric is not visualized. 2. The left common femoral artery is patent with good runoff into the profunda in the superficial femoral artery proximally. The mid and distal superficial femoral artery have several areas of near occlusion, and then good flow is noted through the popliteal artery into the tibials. The patient's best runoff to the foot is through the posterior tibial artery. No significant stenosis is noted and rapid flow is present. The peroneal artery and anterior tibial artery are extremely diminutive in size towards the ankle, but do have runoff to the distal leg. Due to the very diminutive size, it takes a while for the contrast to travel to the distal leg and foot, however no focal stenosis is noted. 3. After angioplasty of the left superficial femoral artery, there is widely patent flow with no extravasation embolization or dissection, the small AV fistula is present near Sadiq's canal. After reinflation of the balloon at very low pressure for multiple three-minute inflations, the AV fistula is still present. Because the patient's vessel is so diminutive, I think placing a stent will do more harm than good. The flow past the small AV fistula is rapid, very little flow is noted into the vein, and there is a significant improvement inflow through the tibials. I think it's likely that the AV fistula will close on its own, and we will follow this with her next arterial duplex in a month. No distal embolization noted on completion imaging and rapid flow noted to the foot with 3 vessel runoff. REPORT OF OPERATION: Patient was brought to the angiographic suite in stable condition. Her bilateral groins were prepped and draped in a sterile fashion. A timeout was performed. Sedation was administered without complication. Local anesthesia was administered to the skin and subcutaneous tissue over the right groin. A microneedle was used to access right femoral artery under ultrasound guidance. A wire was passed through this access and the needle was removed. A 4 Polish sheath was placed and flushed with saline. Glidewire and flushing catheter were advanced into the distal aorta. Aortoiliofemoral arteriograms were performed, please interpretation above. We then went up and over the bifurcation and selected the left common iliac artery and an oblique view of the left iliac system was performed, please interpretation above. We then advanced the catheter over wire into the left common femoral artery and superficial femoral artery and left lower extremity runoff was performed, please interpretation above. We then advanced the wire into the distal popliteal artery under fluoroscopic guidance in the left lower extremity. We changed the sheath for 5 x 45 cm destination sheath and flushed sheath with saline. We exchange the wire for 018 Glidewire advantage and over this we placed a 4 x 220 Uday balloon and did three- minute inflations low atmospheres was performed distally and proximally. Because the patient's very diminutive vessels, we did not want to use high-pressure during angioplasty. Following this there was widely patent flow and resolution of the near occlusions, no dissections embolizations are extravasation, but a small AV fistula was noted and an area of heavy plaque in Sadiq's canal. There was minimal flow into the fistula, but we did reinflate the balloon for a low pressure three-minute inflations. Following this, there is still a little flow present, we reinflated the balloon and did this 2 more times. Unfortunately, we could not get complete resolution of the AV fistula just from balloon inflation. Normally, I would place a stent, but there was a little flow into the AV fistula, the patient's vessels are so diminutive in size that the stent is likely to cause more harm than good, and she still had rapid flow through the tibials which was a significant improvement from her original arteriogram. Therefore, I am hopeful that this AV fistula will close on its own with time, and we will follow this on her next arterial duplex. We then exchange the sheath over an O35 wire for short 5 Polish sheath and flushed sheath with saline. A Mynx closure device was deployed under fluoroscopic guidance with good hemostasis. Pressure was held and sterile dressings were applied. The patient was then taken to recovery in stable condition. She tolerated the procedure and the sedation well. ESTIMATED BLOOD LOSS: Approximately 5 mL. COMPLICATIONS: None. PLAN: Okay to resume home diet and medications. Okay to resume blood thinners in the morning 12/05/20. Follow-up in 1 week to check groin and perfusion. Per the patient, she does not have significant symptoms in the right leg, so I think we can hold off on considering an arteriogram for that extremity. Regarding the left lower extremity, hopefully this will improve her symptoms, but she does have a component of neuropathic pain in both extremities which is not likely to improve after arteriogram and intervention. No lifting greater than 5 pounds or strenuous exercise for 3 days following this procedure. We appreciate the opportunity to participate in the care of this patient. LUCINA VELÁSQUEZ MD December 04, 2020 10:38
[2020-12-04 14:48] VITALS: BP 123/57
== END ==
LOC: M IRPRO 08:31
PROVIDERS: ATTEND Surgery Vascular Surgery
DX: I70.212 Atherosclerosis of native arteries of extremities with intermittent claudication, left leg (principal); E03.9 Hypothyroidism, unspecified; F17.210 Nicotine dependence, cigarettes, uncomplicated; G25.81 Restless legs syndrome; I48.91 Unspecified atrial fibrillation; I71.4 Abdominal aortic aneurysm, without rupture; J43.9 Emphysema, unspecified; K21.9 Gastro-esophageal reflux disease without esophagitis; E78.00 Pure hypercholesterolemia, unspecified; M81.0 Age-related osteoporosis without current pathological fracture; Z79.01 Long term (current) use of anticoagulants; Z79.890 Hormone replacement therapy; Z79.899 Other long term (current) drug therapy; Z88.0 Allergy status to penicillin; Z88.5 Allergy status to narcotic agent

== ENCOUNTER 2020-12-25 20:09 | Inpatient (IN) | payer MEDICARE ==
[~2020-12-25] VITALS: Ht 162.6 cm; Wt 49.5 kg
[~2020-12-25 20:09] MED LIST changes: -FERR1TAB8 PO; -MIRA1POW3 PO; -REST0.05 OU; -SUCR1TA PO; -SYNT100T PO; -TIZA4CAP6 PO
[2020-12-25 21:06] LABS: BASO # 0.1 10^3/uL (0.0-0.2); BASO % 1.2 % (0.0-1.0); EOS # 0.1 10^3/uL (0.0-0.5); EOS % 2.3 % (0.0-3.0); HEMATOCRIT 23.2 % (36.0-47.0); LYMPH # 1.2 10^3/uL (1.5-5.0); LYMPH % 23.8 % (24.0-44.0); MEAN CORPUSCULAR HEMOGLOBIN 26.3 pg (27.0-33.0); MEAN CORPUSCULAR HGB CONC 29.7 g/dl (32.0-36.5); MEAN CORPUSCULAR VOLUME 88.5 fl (80.0-96.0); MONO # 0.6 10^3/uL (0.0-0.8); MONO % 11.5 % (2.0-8.0); NEUTROPHILS # 3.2 10^3/uL (1.5-8.5); PLATELET COUNT, AUTOMATED 218 10^3/uL (150-450); RED BLOOD COUNT 2.62 10^6/uL (4.00-5.40); WHITE BLOOD COUNT 5.2 10^3/uL (4.0-10.0)
[2020-12-25 21:09] LABS: HEMOGLOBIN 6.9 g/dl (12.0-15.5)
[2020-12-25 21:16] LABS: INR 1.2; PROTHROMBIN TIME 15.5 SECONDS (12.5-14.3)
[2020-12-25 21:28] LABS: ALBUMIN 3.3 GM/DL (3.2-5.2); ALT/SGPT 21 U/L (12-78); BILIRUBIN,DIRECT < 0.1 MG/DL (0.0-0.2); BILIRUBIN,TOTAL 0.3 MG/DL (0.2-1.0); BLOOD UREA NITROGEN 21 MG/DL (7-18); CALCIUM LEVEL 8.7 MG/DL (8.8-10.2); CARBON DIOXIDE LEVEL 24 MEQ/L (21-32); CHLORIDE LEVEL 109 MEQ/L (98-107); CK-MB VALUE MASS 1.1 NG/ML (<3.6); CPK CREATINE PHOSPHOKINASE 54 U/L (26-192); CREATININE FOR GFR 0.59 MG/DL (0.55-1.30); GLOMERULAR FILTRATION RATE > 60.0 (>32); GLUCOSE, FASTING 119 MG/DL (70-100); MB/CK RELATIVE INDEX 2.04 (< OR =4); SODIUM LEVEL 140 MEQ/L (136-145); TOTAL PROTEIN 7.1 GM/DL (6.4-8.2); TROPONIN I 0.05 NG/ML (< 0.10)
--- NOTE | 2020-12-25 21:40 | REPVR ---
PROCEDURE INFORMATION: Exam: XR Chest Exam date and time: 12/25/2020 9:03 PM Age: 80 years old Clinical indication: Cough and dyspnea; Additional info: Dyspnea/cough TECHNIQUE: Imaging protocol: XR of the chest. Views: 1 view. COMPARISON: CR Chest, 1 view 03/28/2018 11:34 AM FINDINGS: Tubes, catheters and devices: Dual chamber cardiac pacer with intact pacer wires. Lungs: Well inflated lungs with flattened diaphragmatic contours and increased retrosternal airspace consistent with COPD. No infiltrates. Pleural spaces: Unremarkable. No pleural effusion. No pneumothorax. Heart/Mediastinum: Cardiomegaly. Bones/joints: Unremarkable. IMPRESSION: 1. COPD. 2. Cardiomegaly. 3. No acute findings. No interval change. Electronically signed by: Abdoulaye Delarosa On 12/25/2020 21:40:16 PM
[2020-12-25] MEDS ORDERED: SYNT100T PO (22:44)
[2020-12-25] MEDS ORDERED: TIZA4CAP6 PO (22:44)
[2020-12-25] MEDS ORDERED: CARB25TA9 PO (22:44)
[2020-12-25] MEDS ORDERED: PANT40TA29 PO (22:44)
[2020-12-25] MEDS ORDERED: FERR1TAB8 PO (22:44)
[2020-12-25] MEDS ORDERED: MIRA1POW3 PO (22:44)
[2020-12-25] MEDS ORDERED: ATOR80TA59 PO (22:46)
[2020-12-25] MEDS ORDERED: REST0.05 OU (22:46)
[2020-12-25 23:15] VITALS: BP 139/65
[2020-12-25] MEDS ORDERED: GOLYTELY SOLN 4000 ML BTL PO SCH (23:30)
[2020-12-25] MEDS ORDERED: METOCLOPRAMIDE INJ 10MG/2ML VIAL (J2765 PER 1) IV ONE (23:30)
[2020-12-25] MEDS ORDERED: MAALOX 30 ML SUSP *UDC PO PRN (23:30)
[2020-12-26] VITALS (10 sets, daily range): BP systolic 106–162; BP diastolic 48–62; O2SAT 96
[2020-12-26 00:13] LABS: FERRITIN 12 NG/ML (8-252); IRON (FE) 19 UG/DL (50-170); PERCENT SATURATION 4.4 % (13.2-45.0); TOTAL IRON BINDING CAPACITY 433 UG/DL (250-450)
[2020-12-26] MEDS: PANTOPRAZOLE 40MG VIAL (C9113 PER 1) IV SCH ×3 (00:26→22:05)
--- NOTE | 2020-12-26 00:33 | HPEPDOC ---
[facility] Medical History & Physical Date of Admission December 25, 2020 Date of Service: December 25, 2020 Primary Care Physician: Jr Collins Collins Attending Physician: AKASH MCCORD MD History and Physical CHIEF COMPLAINT: Shortness of breath with exertion HISTORY OF PRESENT ILLNESS: Patient is an 80-year-old female with a past medical history of peripheral vascular disease(status post femoral stents), mitral valve prolapse, history of symptomatic ventricular bigeminy (status post pacemaker placement 10 years ago), restless leg syndrome, hypothyroidism, thoracic aortic aneurysm(4.8 cm) found on recent echo and a history of upper GI bleed leading to symptomatic anemia( last episode of hospitalization March in 2017) who presents to the ED with worsening shortness of breath on exertion since last 2 weeks. Patient states the only recent event that she could remember done was her uneventful angiography by Dr. Velásquez 3 weeks ago. She says that she was doing fine for a week until she started noticing difficulty breathing which got worse and worse and prompted her to come to the ED today. Patient states no associated symptoms. No history of visible blood in stool, visible blood in urine, visible blood in sputum, vaginal bleeding, visible blood in saliva. Sima nt has not had any recent hospitalizations, injuries, fevers, chills, chest pain, lightheadedness, leg cramping, abdominal pain, nausea, vomiting, diarrhea, new headaches, vision changes, loss of bladder or bowel control, no recent change in medications. No dysuria. The patient agrees to be on Eliquis,which was started by Dr. Palafox (Cardiology) a few months ago. Patient is also on Plavix which was started by (Vascular Surgery)for peripheral vascular disease. Patient states that she has never had a colonoscopy however an EGD was done in hospital in [address] Li which showed nonbleeding erosive gastropathy and erosive duodenopathy without bleeding. Patient is an avid smoker. Patient denies any bleeding disorders that run in the family and any recent travel, no history of leukemia in family. In the ED patient was found to have hemoglobin of 6.9 with a hematocrit of 23.2. Patient had stable vitals. PAST MEDICAL HISTORY: 1. Peripheral vascular disease. 2. Mitral valve prolapse. 3. History of symptomatic ventricular bigeminy status post pacemaker placement. 4. Hypothyroidism. 5. Restless leg syndrome 6. Thoracic Aortic aneurysm(as per the patient less than 5 cm in size) found on echo PAST SURGICAL HISTORY: 1. Right leg stent several years ago, 2. pacemaker placement for symptomatic ventricular bigeminy, 3. Balloon angiography of the occluded right femoral stent in [place] 4. D&C SOCIAL HISTORY: Marital status: . Resides in: Home Tobacco use: Current smoker smokes about 6 cigarettes a day. Has been smoking since 80s about half pack per day. ETOH: Occasional Illicit drug use: Denies Tattoos done unprofessionally: None. IV drug use: Denies FAMILY HISTORY: Father: Coronary artery disease, vascular disease-lived to be 90 Mother: Some heart disease- Lived to be 90 Hereditary Diseases: No bleeding diathesis from an family Unexpected deaths due to medical reasons: None ALLERGIES: Please see below. REVIEW OF SYSTEMS: General: Reports: Normal Appetite; Denies: Fatigue, Malaise Constitutional: Denies: Fever, Chills, Sweats, Weakness, Malaise Eyes: Denies: Pain, Vision change ENT: Denies: Head Aches, Sore Throat, Epistaxis Skin: Denies: Rash, Lesions, Breakdown, Nail Changes Pulmonary: Denies: Cough Cardiovascular: Denies Chest Pain, Denies Palpitations Gastrointestinal: Denies: Nausea, Vomiting, Abdominal Pain, diarrhea,constipation Genitourinary: Denies: Dysuria, Frequency, Incontinence, Hematuria Hematologic: Reports: Bruising, Bleeding Excessively Endocrine: Denies: Polydipsia, Polyphagia, Polyuria Musculoskeletal: Denies: Neck Pain, Back Pain Neurological: Denies: Weakness, Numbness, Incoordination, Change in Speech Psych: Reports: Mood Normal; Denies: Anxiety, Depression HOME MEDICATIONS: Please see below. PHYSICAL EXAMINATION: VITAL SIGNS: Temperature 98.4, pulse 74, respiratory rate 24, blood pressure 155/66, pulse oximetry 98 % on room air. GENERAL APPEARANCE: Patient looks in mild distress, taking long deep breaths in between sentences. HEENT: HEENT atraumatic, normocephalic, moist mucous membranes, PERRLA, EOMI, no scleral icterus, conjunctival pallor positive. CARDIOVASCULAR: Normal, rhythm going to S1-S2 heard, no murmurs appreciated. LUNGS: Clear to auscultation bilaterally, no wheezing/rhonchi/crackles heard.. ABDOMEN: Nondistended non-tender, no organomegaly, hyperactive bowel sounds. MUSCULOSKELETAL: No joint deformity or tenderness. EXTREMITIES: Good volume pulses, no pedal edema, no rashes. NEUROLOGICAL: 5 over 5 motor strength, sensations intact, cranial nerves II-12 intact PSYCHIATRIC: Normal mood and affect LABORATORY DATA: See below. IMAGING: MICROBIOLOGY: Please see below. ASSESSMENT AND PLAN:: Patient is an 80-year-old female with a past medical history of peripheral vascular disease(status post femoral stents), mitral valve prolapse, history of symptomatic ventricular bigeminy (status post pacemaker placement 10 years ago), restless leg syndrome, hypothyroidism, thoracic aortic aneurysm(4.8 cm) found on recent echo and a history of upper GI bleed leading to symptomatic anemia( last episode of hospitalization March in 2017) who presents to the ED with worsening shortness of breath on exertion since last 2 weeks. Patient states the only recent event that she could remember done was her uneventful angiography by Dr. Velásquez 3 weeks ago. She says that she was doing fine for a week until she started noticing difficulty breathing which got worse and worse and prompted her to come to the ED today. Patient states no associated symptoms. No history of visible blood in stool, visible blood and urine, visible blood and sputum, vaginal bleeding, visible blood in saliva. Patient has not had any recent hospitalizations, injuries, fevers, chills, chest pain, lightheadedness, leg cramping, abdominal pain, nausea, vomiting, diarrhea, new headaches, vision changes, loss of bladder or bowel control, no recent change in medications. No dysuria. Found to have a hemoglobin of 6.9 and hematocrit of 23.2 concerning for: . 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 -Is mildly short of breath at rest. -Continuous monitoring of vitals. -Holding all blood thinners including ELIQUIS and Plavix -Type and screen was sent. -Packed red blood cells Transfusion was initiated. -Gastroenterology needs to be consulted in the morning. Patient agrees to getting endoscopy or colonoscopy if needed. Appreciate recommendations. -Patient is kept on clear liquid diet in anticipation of a possible EGD or colonoscopy. -To find the source of bleeding if any: FOBT was ordered. -A full iron panel was ordered including peripheral smear. -TSH levels were ordered. -Results still pending. -Oxygen therapy orders were put in in case needed -Keeping in mind the patient's long history of smoking, Advisable for the patient to undergo low-dose yearly CT scan screening for lung cancer # peripheral vascular disease: -The site for patient's angiography is healing well in the right groin. -We are holding Plavix. -Tents and sequentials on #History of symptomatic ventricular bigeminy status post pacemaker: -holding Eliquis because of the anemia( probable bleeding site). #Restless leg syndrome: -Continue home medication. #Hypothyroidism: -Continue her home medication. DVT prophylaxis: Teds and sequentials. DISPOSITION: Patient will need GI consultation for a possible EGD or colonoscopy. Anticipated hospital stay 2 days. - Vital Signs Vital Signs Date Time Temp Pulse Resp B/P (MAP) Pulse Ox O2 Delivery O2 Flow Rate FiO2 12/25/20 23:24 64 17 99 Room Air 12/25/20 23:15 98.3 139/65 (89) Laboratory Data Labs 24H Laboratory Tests 2 12/25/20 20:44: Bedside Glucose (Misc Panel) 130H 12/25/20 20:53: Immature Granulocyte % (Auto) 0.2, Neutrophils (%) (Auto) 61.0, Lymphocytes (%) (Auto) 23.8L, Monocytes (%) (Auto) 11.5H, Eosinophils (%) (Auto) 2.3, Basophils (%) (Auto) 1.2H, Neutrophils # (Auto) 3.2, Lymphocytes # (Auto) 1.2L, Monocytes # (Auto) 0.6, Eosinophils # (Auto) 0.1, Basophils # (Auto) 0.1, Nucleated Red Blood Cells % (auto) 0.4H, Prothrombin Time 15.5H, Prothromb Time International Ratio 1.20, Anion Gap 7L, Glomerular Filtration Rate > 60.0, Calcium Level 8.7L, Total Bilirubin 0.3, Direct Bilirubin < 0.1, Aspartate Amino Transf (AST/SGOT) 21, Alanine Aminotransferase (ALT/SGPT) 21, Alkaline Phosphatase 116, Total Creatine Kinase 54, Creatine Kinase MB 1.1, Creatine Kinase MB Relative Index 2.04, Troponin I 0.05, Total Protein 7.1, Albumin 3.3, Albumin/Globulin Ratio 0.9L CBC/BMP Laboratory Tests 12/25/20 20:53 Microbiology Microbiology 12/25/20 Respiratory Virus Panel (PCR) ([facility]) - Final, Complete Home Medications Scheduled Apixaban (Eliquis) 2.5 Mg Tablet, 2.5 MG PO BID Atorvastatin Calcium (Atorvastatin Calcium) 80 Mg Tablet, 80 MG PO QHS Carbidopa/Levodopa (Carbidopa-Levodopa 25-100 Tab) 1 Each Tablet, 1 TAB PO BID 0600, 1900 Cholecalciferol (Vitamin D3) (Vitamin D3) 1,000 Unit Tablet, 1,000 UNITS PO DAILY Clopidogrel Bisulfate (Clopidogrel) 75 Mg Tablet, 75 MG PO Q2D Cyclosporine (Restasis) 0.05% Droperette, 1 DROP OU BID Ferrous Sulfate (Ferrous Sulfate) 325 Mg Tablet, 325 MG PO Q2WK EVERY OTHER THURSDAY Gabapentin (Gabapentin) 400 Mg Capsule, 400 MG PO QID Levothyroxine Sodium (Synthroid) 100 Mcg Tablet, 100 MCG PO DAILY Pantoprazole Sodium (Pantoprazole Sodium) 40 Mg Tablet.dr, 40 MG PO BID Ropinirole HCl (Ropinirole HCl) 2 Mg Tablet, 2 MG PO QID Tizanidine HCl (Tizanidine HCl) 4 Mg Capsule, 4 MG PO QHS Scheduled PRN Polyethylene Glycol 3350 (Miralax) 17 Gm Powd.pack, 17 GM PO DAILY PRN for C ONSTIPATION Allergies Coded Allergies: Penicillins (Verified Allergy, Severe, RASH,ITCH TO BUTTOCKS, 09/22/19) codeine (Verified Allergy, Severe, DIZZINESS, UPSET STOMACH, 09/22/19) dizziness, upset stomach acetaminophen (Verified Allergy, Intermediate, 11/30/20) hydrocodone (Verified Allergy, Intermediate, UPSET STOMACH, 09/22/19) upset stomach tramadol (Verified Allergy, Intermediate, UPSET STOMACH, 09/22/19) upset stomach A-FIB/CHADSVASC A-FIB History Current/History of A-Fib/PAF?: No Current PO Anticoag Therapy: Yes GME ATTESTATION GME ATTESTATION My faculty preceptor for this patient encounter was physically present during the encounter and was fully available. All aspects of the patient interview, examination, medical decision making process, and medical care plan development were reviewed and approved by the faculty preceptor. The faculty preceptor is aware and concurs with the plan as stated in the body of this note and will attest to such by his/her cosignature. Ernst Briseno MD December 25, 2020 23:39
[2020-12-26] MEDS ORDERED: MIRALAX *UNIT DOSE* 17GM PACKET PO PRN (00:45)
[2020-12-26] MEDS: GABAPENTIN 400MG CAP PO SCH ×5 (01:08→22:05)
[2020-12-26] MEDS: ATORVASTATIN 20 MG TAB PO SCH ×2 (01:08→22:05)
[2020-12-26] MEDS: rOPINIRole 2MG TAB PO SCH ×5 (01:08→22:05)
[2020-12-26] MEDS ORDERED: ALPRAZolam 0.5 MG TAB PO ONE (03:35)
[2020-12-26] MEDS: SINEMET 25-100 MG TAB PO SCH ×2 (05:47→18:40)
[2020-12-26] MEDS: LEVOTHYROXINE 100MCG TABLET (0.1MG) PO SCH (05:47)
[2020-12-26 06:33] LABS: BASO # 0.1 10^3/uL (0.0-0.2); BASO % 0.8 % (0.0-1.0); EOS # 0.1 10^3/uL (0.0-0.5); EOS % 0.8 % (0.0-3.0); HEMATOCRIT 28.8 % (36.0-47.0); LYMPH # 0.9 10^3/uL (1.5-5.0); LYMPH % 10.3 % (24.0-44.0); MEAN CORPUSCULAR HGB CONC 31.9 g/dl (32.0-36.5); MEAN CORPUSCULAR VOLUME 84.5 fl (80.0-96.0); MONO # 0.7 10^3/uL (0.0-0.8); MONO % 8.6 % (2.0-8.0); NEUTROPHILS # 6.8 10^3/uL (1.5-8.5); NEUTROPHILS % 79.2 % (36.0-66.0); PLATELET COUNT, AUTOMATED 188 10^3/uL (150-450); RED BLOOD COUNT 3.41 10^6/uL (4.00-5.40); WHITE BLOOD COUNT 8.6 10^3/uL (4.0-10.0)
[2020-12-26 06:35] LABS: HEMATOCRIT 28.8 % (36.0-47.0)
[2020-12-26 06:36] LABS: HEMOGLOBIN 9.2 g/dl (12.0-15.5)
[2020-12-26 06:42] LABS: INR 1.19; PROTHROMBIN TIME 15.4 SECONDS (12.5-14.3)
[2020-12-26 06:43] LABS: PARTIAL THROMBOPLASTIN TIME 32.7 SECONDS (24.2-38.5)
[2020-12-26 06:46] LABS: D-DIMER QUANT 1000.43 ng/ml (<500)
[2020-12-26 07:00] LABS: ALBUMIN 3.1 GM/DL (3.2-5.2); ALT/SGPT 16 U/L (12-78); BILIRUBIN,TOTAL 0.8 MG/DL (0.2-1.0); BLOOD UREA NITROGEN 17 MG/DL (7-18); CALCIUM LEVEL 8.5 MG/DL (8.8-10.2); CARBON DIOXIDE LEVEL 23 MEQ/L (21-32); CHLORIDE LEVEL 113 MEQ/L (98-107); CREATININE FOR GFR 0.58 MG/DL (0.55-1.30); GLOMERULAR FILTRATION RATE > 60.0 (>32); GLUCOSE, FASTING 88 MG/DL (70-100); SODIUM LEVEL 142 MEQ/L (136-145); TOTAL PROTEIN 6.9 GM/DL (6.4-8.2)
[2020-12-26 08:52] LABS: VITAMIN B12 LEVEL 545 PG/ML (247-911)
[2020-12-26] MEDS: VITAMIN D 1,000 INTERNATIONAL UNITS TABLET PO SCH (10:13)
[2020-12-26 13:26] LABS: HEMATOCRIT 30.2 % (36.0-47.0); HEMOGLOBIN 9.6 g/dl (12.0-15.5)
--- NOTE | 2020-12-26 16:06 | IPNPDOC ---
Text Note Date of Service The patient was seen on 12/26/20. NOTE Hospitalist Progress Note Subjective: Patient was admitted overnight for shortness of breath found to be severely anemic at 7.6. She was given 2 units of blood, and her hemoglobin came up nicely to 9.2 this morning. Repeat hemoglobin at 1300 today was 9.6. The patient reports that she is feeling somewhat better, and has wondered if she might be able to advance her diet. Given that everything is looking stable at this time, I will allow her to advance her diet at this time. Overnight she did have s ignificant restless leg syndrome, it appears that she did not get her usual dose of gabapentin and ropinirole until later in the evening, therefore this likely is the reason why. These medications have been continued, and now she is getting them at their regularly scheduled time. Otherwise, she does not have any other complaints at this time. Objective: General: Awake, alert, oriented 3. Not in any acute distress. HEENT: Head normocephalic, atraumatic, sclera are nonicteric. Hearing is grossly intact to conversation. Respiratory: Clear to auscultation bilaterally with no wheezes, rales, or rhonchi. Cardiovascular: Regular rate and rhythm, with no rubs, gallops, or murmur. Abdomen: Soft, nontender, nondistended, no hepatosplenomegaly appreciated. Bowel sounds present. Extremities: 2+ pulses in the radial bilaterally. No evidence of clubbing or cyanosis. Legs are constantly moving around. Assessment: Symptomatic severe normocytic anemia, unknown bleeding source, appears to be a slow bleed, suspicion for GI bleed Evidence of concurrent iron deficiency anemia and anemia of chronic disease Vitamin B12 deficiency Folate deficiency Hypothyroidism Myelodysplasia Peripheral vascular disease History of ventricular bigeminy status post pacemaker Restless leg syndrome Plan: -H&H has remained stable throughout the day. Diet has been advanced to regular diet. If she continues to remain stable tomorrow, likely would anticipate discharge at that time with strong recommendation for outpatient follow-up EGD and colonoscopy, if there is a significant drop in H&H, then we will likely pursue these as an inpatient. VS,Fishbone, I+O VS, Fishbone, I+O Laboratory Tests 12/25/20 20:53 12/26/20 06:11 12/26/20 12:57 Vital Signs Date Time Temp Pulse Resp B/P (MAP) Pulse Ox O2 Delivery O2 Flow Rate FiO2 12/26/20 14:01 99.0 66 20 110/56 (74) 95 Room Air I&O- Last 24 Hours up to 6 AM 12/26/20 06:00 Intake Total 1800 ml Output Total 250 ml Balance 1550 ml SHIV BAIRES DO December 26, 2020 16:06
--- NOTE | 2020-12-27 05:13 | ECGEPIP ---
[facility] - ED Test Date: 2020-12-25 Pat Name: BILLIE RUIZ Department: Room: [place] [address] Gender: Female Nurse Practitioner Physicians Assistant: REGINA : 1940 Requested By: VARUN Mustafa Order Number: [id number] Reading MD: Earl Alba Measurements Intervals [place] Rate: 65 P: 105 MD: 154 QRS: -30 QRSD: 98 T: -31 QT: 416 QTc: 432 Interpretive Statements Atrial-paced rhythm Left axis deviation Minimal voltage criteria for LVH, may be normal variant ( Hakeem product ) Septal infarct , age undetermined SIMILAR TO 03/28/18 Electronically Signed on 12-27-2020 5:13:21 EDT by Earl Alba
[2020-12-27] MEDS: LEVOTHYROXINE 100MCG TABLET (0.1MG) PO SCH (05:38)
[2020-12-27] MEDS: SINEMET 25-100 MG TAB PO SCH (05:38)
[2020-12-27 06:00] VITALS: BP 147/66
[2020-12-27 06:46] LABS: BASO % 0.8 % (0.0-1.0); EOS # 0.2 10^3/uL (0.0-0.5); HEMATOCRIT 30.5 % (36.0-47.0); HEMOGLOBIN 9.5 g/dl (12.0-15.5); LYMPH # 1.1 10^3/uL (1.5-5.0); LYMPH % 22.6 % (24.0-44.0); MEAN CORPUSCULAR HEMOGLOBIN 27.5 pg (27.0-33.0); MEAN CORPUSCULAR HGB CONC 31.1 g/dl (32.0-36.5); MEAN CORPUSCULAR VOLUME 88.2 fl (80.0-96.0); MONO # 0.6 10^3/uL (0.0-0.8); MONO % 12.4 % (2.0-8.0); NEUTROPHILS % 60.8 % (36.0-66.0); PLATELET COUNT, AUTOMATED 185 10^3/uL (150-450); RED BLOOD COUNT 3.46 10^6/uL (4.00-5.40)
[2020-12-27 07:05] LABS: ALBUMIN 3.1 GM/DL (3.2-5.2); ALT/SGPT 15 U/L (12-78); BILIRUBIN,TOTAL 0.5 MG/DL (0.2-1.0); BLOOD UREA NITROGEN 17 MG/DL (7-18); CALCIUM LEVEL 8.3 MG/DL (8.8-10.2); CARBON DIOXIDE LEVEL 25 MEQ/L (21-32); CHLORIDE LEVEL 112 MEQ/L (98-107); CREATININE FOR GFR 0.68 MG/DL (0.55-1.30); GLOMERULAR FILTRATION RATE > 60.0 (>32); GLUCOSE, FASTING 103 MG/DL (70-100); POTASSIUM SERUM 4.4 MEQ/L (3.5-5.1); SODIUM LEVEL 143 MEQ/L (136-145); TOTAL PROTEIN 6.7 GM/DL (6.4-8.2)
[2020-12-27] MEDS ORDERED: PANTOPRAZOLE 40MG TAB (PROTONIX) PO SCH (09:00)
[2020-12-27] MEDS ORDERED: SUCRALFATE 1 GM TAB PO SCH (09:00)
[2020-12-27] MEDS: rOPINIRole 2MG TAB PO SCH (09:07)
[2020-12-27] MEDS: VITAMIN D 1,000 INTERNATIONAL UNITS TABLET PO SCH (09:08)
[2020-12-27] MEDS: GABAPENTIN 400MG CAP PO SCH (09:08)
[2020-12-27] MEDS ORDERED: SUCR1TA PO (09:43)
--- NOTE | 2020-12-27 11:46 | DS.PDOC ---
Discharge Summary General Date of Admission December 25, 2020 at 23:12 Date of Discharge 12/27/2020 Discharge Summary PRIMARY CARE PHYSICIAN: Dr. Sivlia Michele ATTENDING AT TIME OF DISCHARGE: Dr. Davis Jay DISCHARGE DIAGNOS(E)S: Symptomatic severe normocytic anemia, unknown bleeding source, appears to be a slow bleed, suspicion for GI bleed Evidence of concurrent iron deficiency anemia and anemia of chronic disease Vitamin B12 deficiency Folate deficiency Hypothyroidism Myelodysplasia Peripheral vascular disease History of ventricular bigeminy status post pacemaker Restless leg syndrome HPI & HOSPITAL COURSE: Patient had been having worsening shortness of breath for 2 weeks prior to admission. Upon arrival to the emergency department she was found to have a hemoglobin of 6.9. She was transfused 2 units of blood and her hemoglobin came up to 9.2, and then subsequent rechecks that shown 9.6, and this morning 9.5. She was advanced to regular diet last night, and was able to dinner and breakfast this morning without any issues. She was already put on Protonix 40 mg twice a day at home, Carafate will be added, but otherwise she does appear to be stable at this time. Clinically she is doing well. She is appropriate for discharge at this time, I will strongly recommend outpatient EGD and colonoscopy in the near future. PHYSICAL EXAMINATION ON DISCHARGE: GENERAL: Awake, alert, oriented 3. She is in no acute distress. CARDIOVASCULAR EXAMINATION: Regular rate and rhythm, with no rubs, gallops, or murmur. RESPIRATORY EXAMINATION: Clear to auscultation bilaterally with no wheezes, rales, or rhonchi. ABDOMINAL EXAMINATION: Soft, nontender, nondistended. Bowel sounds present. EXTREMITIES: No clubbing or edema noted. 2+ pulses in the radial bilaterally. DISPOSITION: Home DISCHARGE INSTRUCTIONS: Follow-up with primary care provider in 7-10 days. Diet as tolerated. Activity as tolerated. If symptoms return, or if you experience worsening of your symptoms, please call your doctor or return to the emergency department. ITEMS THAT NEED OUTPATIENT FOLLOWUP: Recommend outpatient EGD and colonoscopy Vital Signs/I&Os Vital Signs Date Time Temp Pulse Resp B/P (MAP) Pulse Ox O2 Delivery O2 Flow Rate FiO2 12/27/20 06:00 97.0 67 18 147/66 (93) 95 Room Air I&O- Last 24 Hours up to 6 AM 12/27/20 05:59 Intake Total 1640 ml Output Total 1000 ml Balance 640 ml Laboratory Data Labs 24H Laboratory Tests 2 12/26/20 14:35: Urine Color YELLOW, Urine Appearance CLEAR, Urine pH 6.0, Urine Specific Edelstein 1.009, Urine Protein NEGATIVE, Urine Glucose (UA) NEGATIVE, Urine Ketones NEGATIVE, Urine Blood NEGATIVE, Urine Nitrite NEGATIVE, Urine Bilirubin NEGATIVE, Urine Urobilinogen 0.2, Urine Leukocyte Esterase 1+H, Urine WBC (Auto) 6H, Urine RBC (Auto) 0, Urine Hyaline Casts (Auto) 0, Urine Bacteria (Auto) NEGATIVE, Urine Squamous Epithelial Cells 1, Urine Mucus (Auto) SMALL, Urine Sperm (Auto) 12/27/20 06:21: Immature Granulocyte % (Auto) 0.4, Neutrophils (%) (Auto) 60.8, Lymphocytes (%) (Auto) 22.6L, Monocytes (%) (Auto) 12.4H, Eosinophils (%) (Auto) 3.0, Basophils (%) (Auto) 0.8, Neutrophils # (Auto) 3.0, Lymphocytes # (Auto) 1.1L, Monocytes # (Auto) 0.6, Eosinophils # (Auto) 0.2, Basophils # (Auto) 0.0, Nucleated Red Blood Cells % (auto) 0.0, Anion Gap 6L, Glomerular Filtration Rate > 60.0, Calcium Level 8.3L, Total Bilirubin 0.5, Aspartate Amino Transf (AST/SGOT) 27, Alanine Aminotransferase (ALT/SGPT) 15, Alkaline Phosphatase 110, Total Protein 6.7, Albumin 3.1L, Albumin/Globulin Ratio 0.9L CBC/BMP Laboratory Tests 12/26/20 12:57 12/27/20 06:21 Microbiology Microbiology 12/26/20 Urine Culture - Final, Complete 12/25/20 Respiratory Virus Panel (PCR) ([facility]) - Final, Complete Discharge Medications Scheduled Apixaban (Eliquis) 2.5 Mg Tablet, 2.5 MG PO BID, (Reported) Atorvastatin Calcium (Atorvastatin Calcium) 80 Mg Tablet, 80 MG PO QHS, (Reported) Carbidopa/Levodopa (Carbidopa-Levodopa 25-100 Tab) 1 Each Tablet, 1 TAB PO BID, (Reported) 0600, 1900 Cholecalciferol (Vitamin D3) (Vitamin D3) 1,000 Unit Tablet, 1,000 UNITS PO DAILY, (Reported) Clopidogrel Bisulfate (Clopidogrel) 75 Mg Tablet, 75 MG PO Q2D, (Reported) Cyclosporine (Restasis) 0.05% Droperette, 1 DROP OU BID, (Reported) Ferrous Sulfate (Ferrous Sulfate) 325 Mg Tablet, 325 MG PO Q2WK, (Reported) EVERY OTHER TUAN Gabapentin (Gabapentin) 400 Mg Capsule, 400 MG PO QID, (Reported) Levothyroxine Sodium (Synthroid) 100 Mcg Tablet, 100 MCG PO DAILY, (Reported) Pantoprazole Sodium (Pantoprazole Sodium) 40 Mg Tablet.dr, 40 MG PO BID, (Reported) Ropinirole HCl (Ropinirole HCl) 2 Mg Tablet, 2 MG PO QID, (Reported) Sucralfate (Sucralfate) 1 Gm Tablet, 1 GM PO BID Tizanidine HCl (Tizanidine HCl) 4 Mg Capsule, 4 MG PO QHS, (Reported) Scheduled PRN Polyethylene Glycol 3350 (Miralax) 17 Gm Powd.pack, 17 GM PO DAILY PRN for CONSTIPATION, (Reported) Allergies Coded Allergies: Penicillins (Verified Allergy, Severe, RASH,ITCH TO BUTTOCKS, 09/22/19) codeine (Verified Allergy, Severe, DIZZINESS, UPSET STOMACH, 09/22/19) dizziness, upset stomach acetaminophen (Verified Allergy, Intermediate, 11/30/20) hydrocodone (Verified Allergy, Intermediate, UPSET STOMACH, 09/22/19) upset stomach tramadol (Verified Allergy, Intermediate, UPSET STOMACH, 09/22/19) upset stomach DAVIS JAY DO December 27, 2020 11:46
== END 2020-12-27 11:55 | disposition home or self-care (01) | DRG 812 ==
LOC: M ED 20:09 → M ED INP 23:12 → ENRESERV 23:19 → M MSPAV 23:59
PROVIDERS: ADMIT Family Medicine; ATTEND Neuromusculoskeletal Medicine & OMM
PROC: 30233N1 Transfusion of Nonautologous Red Blood Cells into Peripheral Vein, Percutaneous Approach (ICD-10-PCS; principal; 2020-12-25)
DX: D50.0 Iron deficiency anemia secondary to blood loss (chronic) (principal); K92.2 Gastrointestinal hemorrhage, unspecified; I73.9 Peripheral vascular disease, unspecified; G25.81 Restless legs syndrome; E03.9 Hypothyroidism, unspecified; I71.2 Thoracic aortic aneurysm, without rupture; I34.1 Nonrheumatic mitral (valve) prolapse; Z66 Do not resuscitate; D46.9 Myelodysplastic syndrome, unspecified; Z95.820 Peripheral vascular angioplasty status with implants and grafts; F17.210 Nicotine dependence, cigarettes, uncomplicated; Z79.01 Long term (current) use of anticoagulants; Z79.02 Long term (current) use of antithrombotics/antiplatelets; Z79.899 Other long term (current) drug therapy; Z88.0 Allergy status to penicillin; Z88.5 Allergy status to narcotic agent; Z88.6 Allergy status to analgesic agent; E53.8 Deficiency of other specified B group vitamins; Z95.0 Presence of cardiac pacemaker; D63.8 Anemia in other chronic diseases classified elsewhere

== ENCOUNTER → 2020-12-25 | Outpatient (REF) | payer MEDICARE ==
[~2020-12-25] MED LIST changes: +FERR1TAB8 PO; +GABA-283 PO; -GABA-845 PO; -ISOVUE-300 61% 50ML VIAL As Ordered ONE; -LIDOCAINE 1% MDV 20ML VIAL As Ordered ONE; -MIDAZOLAM INJ 2MG/2ML VIAL (J2250 PER 1MG) As Ordered ONE; +MIRA1POW3 PO; -ONDANSETRON 4MG/2ML VIAL As Ordered ONE; +REST0.05 OU; +SUCR1TA PO; +SYNT100T PO; +TIZA4CAP6 PO; -fentaNYL 100 MCG/2 ML INJECTION (J3010) As Ordered ONE
== END ==
LOC: M LAB REF 12:04
PROVIDERS: ATTEND Internal Medicine
DX: M06.4 Inflammatory polyarthropathy (principal)

== ENCOUNTER → 2021-01-07 | Outpatient (CLI) | payer MEDICARE ==
[~2021-01-07] MED LIST changes: +FERR1TAB8 PO; +MIRA1POW3 PO; +REST0.05 OU; +SUCR1TA PO; +SYNT100T PO; +TIZA4CAP6 PO
[2021-01-07 12:14] LABS: BASO # 0.1 10^3/uL (0.0-0.2); BASO % 0.8 % (0.0-1.0); EOS # 0.1 10^3/uL (0.0-0.5); EOS % 1.1 % (0.0-3.0); HEMATOCRIT 35.3 % (36.0-47.0); HEMOGLOBIN 10.7 g/dl (12.0-15.5); LYMPH % 15.6 % (24.0-44.0); MEAN CORPUSCULAR HGB CONC 30.3 g/dl (32.0-36.5); MEAN CORPUSCULAR VOLUME 92.4 fl (80.0-96.0); MONO # 0.8 10^3/uL (0.0-0.8); MONO % 11.9 % (2.0-8.0); NEUTROPHILS # 4.6 10^3/uL (1.5-8.5); NEUTROPHILS % 70.3 % (36.0-66.0); PLATELET COUNT, AUTOMATED 224 10^3/uL (150-450); RED BLOOD COUNT 3.82 10^6/uL (4.00-5.40); WHITE BLOOD COUNT 6.5 10^3/uL (4.0-10.0)
--- NOTE | 2021-01-07 18:01 | REP ---
INDICATION: CLAUDICATION - LABS AFTER COMPARISON: 10/23/2020. TECHNIQUE: Real time faulkner scale and Duplex Doppler evaluation of the bilateral lower extremity arterial vasculature using linear high frequency transducer. FINDINGS: Faulkner scale and duplex doppler images demonstrate moderate diffuse plaque bilaterally. ANA right 0.8 and left 0.7. There is a lone pine right bypass graft extending from superficial femoral artery to the popliteal artery. This bypasses the occluded lone pine vessels at these levels. There is stenosis of the right profunda approximately 6-1. Diffuse biphasic waveforms are seen bilaterally except for monophasic waveform in the distal right profunda. Peak systolic velocities (cm/sec) Common femoral artery: Right 191; Left 202 Profunda femoris: Right 603; Left 174 SFA (proximal): Right 124; Left 137 SFA (mid): Right 83; Left 142 SFA (distal): Right 98; Left 136 Popliteal artery: Right 104; Left 76 LELO (prox.): Right 88; Left 63 Tibioperoneal trunk: Right 99; Left 94 CUSTODIAL SERVICES MANAGER (prox.): Right 77; Left 64 CUSTODIAL SERVICES MANAGER (distal): Right 87; Left 72 LELO (distal): Right 71; Left 40 IMPRESSION: Moderate diffuse plaquing bilaterally. Patent lone pine right bypass graft extending from SFA and popliteal artery. Stenosis right profunda. <Electronically signed by Davis Faulkner > 01/07/21 4028
== END ==
LOC: M RAD 10:32
PROVIDERS: ATTEND Physician Assistant
DX: I70.213 Atherosclerosis of native arteries of extremities with intermittent claudication, bilateral legs (principal)

== ENCOUNTER → 2021-01-07 | Outpatient (CLI) | payer MEDICARE | LOC: M LAB 10:28 | PROVIDERS: ATTEND Internal Medicine | DX: D50.9 Iron deficiency anemia, unspecified (principal) ==

== ENCOUNTER → 2021-02-13 | Outpatient (CLI) | payer MEDICARE ==
[~2021-02-13] MED LIST changes: +FLON1SPR; +METO1TAB32 PO; +SYST1SOL4 OU
== END ==
LOC: M LABSMTC 10:04
PROVIDERS: ATTEND Anesthesiology
DX: Z01.812 Encounter for preprocedural laboratory examination (principal)

== ENCOUNTER 2021-02-18 07:59 | Day surgery (SDC) | payer MEDICARE ==
[~2021-02-18] VITALS: Ht 162.6 cm; Wt 46.7 kg
[~2021-02-18 07:59] MED LIST changes: +NS 1,000 ML IV ONE
[2021-02-18] MEDS ORDERED: fentaNYL 100 MCG/2 ML INJECTION (J3010) As Ordered ONE (09:14)
[2021-02-18] MEDS ORDERED: propofoL 200 MG/20 ML VIAL As Ordered ONE (09:14)
[2021-02-18] MEDS ORDERED: LIDOCAINE 2% 100MG/5ML SDV (FOR ANES.) As Ordered ONE (09:14)
--- NOTE | 2021-02-18 09:33 | ROOR ---
Patient Name: Jessica Garcia Procedure Date: 02/18/2021 9:18 AM Date of : 1940 Age: 80 Room: [facility] Gender: Female Note Status: Finalized Procedure: Upper Endoscopy + Biopsies Indications: Iron deficiency anemia Providers: Modesto Li MD Referring MD: Silvia MARTINEZ MD Requesting Provider: Medicines: Monitored Anesthesia Care Complications: No immediate complications. Procedure: Pre-Anesthesia Assessment: - The heart rate, respiratory rate, oxygen saturations, blood pressure, adequacy of pulmonary ventilation, and response to care were monitored throughout the procedure. The Endoscope was introduced through the mouth, and advanced to the second part of duodenum. The upper GI endoscopy was accomplished without difficulty. The patient tolerated the procedure well. Findings: The Z-line was variable and was found 40 cm from the incisors. Multiple biopsies were obtained with cold forceps for evaluation to rule out Fitzgerald's Esophagus randomly at the gastroesophageal junction. Localized mild inflammation characterized by congestion (edema) and erythema was found on the greater curvature of the stomach. Biopsies were taken with a cold forceps for Helicobacter pylori testing. The exam of the duodenum was otherwise normal. Biopsies for histology were taken with a cold forceps in the first portion of the duodenum for evaluation of celiac disease. The exam was otherwise without abnormality. Impression: - Z-line variable, 40 cm from the incisors. - Mucosal changes suspicious for gastritis. Biopsied. - The examination was otherwise normal. - Multiple biopsies were obtained at the gastroesophageal junction. - Biopsies were taken with a cold forceps for evaluation of celiac disease. - The examination was otherwise normal. Recommendation: - Patient has a contact number available for emergencies. The signs and symptoms of potential delayed complications were discussed with the patient. Return to normal activities tomorrow. Written discharge instructions were provided to the patient. - High fiber diet. - Discharge patient to home. - Follow an antireflux regimen. - Continue present medications. - Await pathology results. - Telephone GI clinic for pathology results in 1 week. - Return to referring physician. - The findings and recommendations were discussed with the patient's family. Procedure Code(s): --- Professional --- 36210, Esophagogastroduodenoscopy, flexible, transoral; with biopsy, single or multiple Diagnosis Code(s): --- Professional --- K22.8, Other specified diseases of esophagus K31.89, Other diseases of stomach and duodenum D50.9, Iron deficiency anemia, unspecified CPT copyright 2019 [employer]. All rights reserved. The codes documented in this report are preliminary and upon certified coder review may be revised to meet current compliance requirements. Modesto Li MD Modetso Li MD 02/18/2021 9:33:39 AM Electronically signed by Modesto Li MD Number of Addenda: 0 Note Initiated On: 02/18/2021 9:18 AM Estimated Blood Loss: Estimated blood loss: none.
[2021-02-18] MEDS ORDERED: ePHEDrine SULFATE 25 MG/5 ML(5MG/ML) SYRINGE As Ordered ONE (09:56)
--- NOTE | 2021-02-18 09:56 | ROOR ---
Patient Name: Jessica Garcia Procedure Date: 02/18/2021 9:19 AM Date of : 1940 Age: 80 Room: [facility] Gender: Female Note Status: Finalized Procedure: Total Colonoscopy to Cecum + ileoscopy Indications: Unexplained iron deficiency anemia Providers: Modesto Li MD Referring MD: Silvia MARTINEZ MD Requesting Provider: Medicines: Monitored Anesthesia Care Complications: No immediate complications. Procedure: Pre-Anesthesia Assessment: - The heart rate, respiratory rate, oxygen saturations, blood pressure, adequacy of pulmonary ventilation, and response to care were monitored throughout the procedure. The Colonoscope was introduced through the anus and advanced to the terminal ileum, with identification of the appendiceal orifice and IC valve. The colonoscopy was performed without difficulty. The patient tolerated the procedure well. The quality of the bowel preparation was good. Findings: The perianal and digital rectal examinations were normal. Non-bleeding internal hemorrhoids were found during retroflexion. The hemorrhoids were small and Grade I (internal hemorrhoids that do not prolapse). No other significant abnormalities were identified in a careful examination of the remainder of the colon. The terminal ileum appeared normal. The exam was otherwise without abnormality on direct and retroflexion views. Impression: - Non-bleeding internal hemorrhoids. - The examined portion of the ileum was normal. - The examination was otherwise normal on direct and retroflexion views. - No specimens collected. - The exam was otherwise normal to the cecum. Recommendation: - Patient has a contact number available for emergencies. The signs and symptoms of potential delayed complications were discussed with the patient. Return to normal activities tomorrow. Written discharge instructions were provided to the patient. - High fiber diet. - Discharge patient to home. - Continue present medications. - The findings and recommendations were discussed with the patient's family. Procedure Code(s): --- Professional --- 85795, Colonoscopy, flexible; diagnostic, including collection of specimen(s) by brushing or washing, when performed (separate procedure) Diagnosis Code(s): --- Professional --- K64.0, First degree hemorrhoids D50.9, Iron deficiency anemia, unspecified CPT copyright 2019 [employer]. All rights reserved. The codes documented in this report are preliminary and upon hatchery worker review may be revised to meet current compliance requirements. Modesto Li MD Modesto Li MD 02/18/2021 9:56:24 AM Electronically signed by Modesto Li MD Number of Addenda: 0 Note Initiated On: 02/18/2021 9:19 AM Estimated Blood Loss: Estimated blood loss: none.
[2021-02-18 10:39] VITALS: BP 110/51
== END 2021-02-18 10:43 | disposition home or self-care (01) ==
LOC: M OPP 07:59
PROVIDERS: ATTEND Internal Medicine Gastroenterology
DX: D50.9 Iron deficiency anemia, unspecified (principal); K64.0 First degree hemorrhoids; K22.8 Other specified diseases of esophagus; K31.89 Other diseases of stomach and duodenum; G47.30 Sleep apnea, unspecified; E03.9 Hypothyroidism, unspecified; Z79.899 Other long term (current) drug therapy; Z88.0 Allergy status to penicillin; Z88.5 Allergy status to narcotic agent; Z95.0 Presence of cardiac pacemaker; F17.210 Nicotine dependence, cigarettes, uncomplicated
CPT/HCPCS: 43239; 45378; 88305; 88309; J3010

== ENCOUNTER → 2021-04-09 | Outpatient (REF) | payer MEDICARE ==
[~2021-04-09] MED LIST changes: -NS 1,000 ML IV ONE
== END ==
LOC: M LAB REF 17:34
PROVIDERS: ATTEND Dermatology
DX: L90.5 Scar conditions and fibrosis of skin (principal)
CPT/HCPCS: 87070; 87077; 87186; 87205; G0463

== ENCOUNTER → 2021-04-19 | Outpatient (CLI) | payer MEDICARE ==
--- NOTE | 2021-04-19 14:01 | DEXAMM ---
INDICATION: M[age] AGE REL OSTEOPOROSIS. COMPARISON: 07/12/2018, 01/15/2006. TECHNIQUE: Bone density was measured using dual-energy x-ray absorptiometry (DEXA). FINDINGS: AP SPINE L1-L4 BMD 0.928 g/cm2 Young Adult T-Score -2.1 Age Matched Z-Score -0.3. LT FEMUR, TOTAL BMD 0.649 g/cm2 Young Adult T-Score -2.8 Age Matched Z-Score -0.8. LT NECK BMD 0.668 g/cm2 Young Adult T-Score -2.7 Age Matched Z-Score -0.5. RT FEMUR, TOTAL BMD 0.656 g/cm2 Young Adult T-Score -2.8 Age Matched Z-Score -0.8. RT NECK BMD 0.661 g/cm2 Young Adult T-Score -2.7 Age Matched Z-Score -0.5. IMPRESSION: There is low bone density of the spine. There is osteoporosis of the left hip. There is osteoporosis of the right hip. The density of the spine has decreased 10.2% since the initial exam on 01/15/2006. The density of the spine increased 1.2% since most recent exam on 07/12/2018. The density of the left hip has decreased 23.4% since initial exam on 01/15/2006. The density of the left hip has decreased 7.2% since most recent exam on 07/12/2018. The density of the right hip has decreased 7.5% since the initial exam on 07/12/2018. FOLLOW-UP: Recommendation for the next bone density exam: 2 years. <Electronically signed by Davis Faulkner > 04/19/21 0455
== END ==
LOC: M WHC 12:47
PROVIDERS: ATTEND Internal Medicine
DX: Z13.820 Encounter for screening for osteoporosis (principal); M85.89 Other specified disorders of bone density and structure, multiple sites; M81.0 Age-related osteoporosis without current pathological fracture

== ENCOUNTER 2021-05-12 13:40 | Emergency (ER) | payer MEDICARE ==
[~2021-05-12] VITALS: Ht 161.3 cm; Wt 49.1 kg
[2021-05-12 15:04] LABS: VENOUS BASE EXCESS 2.5 (-2.0-2.0); VENOUS HCO3 27.1 MEQ/L (23.0-27.0); VENOUS O2 SATURATION 55.3 % (60.0-80.0); VENOUS PARTIAL PRESSURE CO2 41.8 mmHg (38.0-50.0); VENOUS PARTIAL PRESSURE O2 29.9 mmHg (30.0-50.0); VENOUS PH 7.429 UNITS (7.330-7.430); VENOUS STANDARD HCO3 25.7 MEQ/L; VENOUS TOTAL CO2 28.3 MEQ/L (24.0-28.0)
[2021-05-12 15:12] LABS: BASO # 0.1 10^3/uL (0.0-0.2); BASO % 0.9 % (0.0-1.0); EOS # 0.1 10^3/uL (0.0-0.5); HEMATOCRIT 35.5 % (36.0-47.0); HEMOGLOBIN 11.3 g/dl (12.0-15.5); LYMPH # 1.4 10^3/uL (1.5-5.0); LYMPH % 19.8 % (24.0-44.0); MEAN CORPUSCULAR HEMOGLOBIN 30.4 pg (27.0-33.0); MEAN CORPUSCULAR HGB CONC 31.8 g/dl (32.0-36.5); MEAN CORPUSCULAR VOLUME 95.4 fl (80.0-96.0); MONO # 0.8 10^3/uL (0.0-0.8); MONO % 11.7 % (2.0-8.0); NEUTROPHILS # 4.5 10^3/uL (1.5-8.5); NEUTROPHILS % 66.3 % (36.0-66.0); PLATELET COUNT, AUTOMATED 184 10^3/uL (150-450); RED BLOOD COUNT 3.72 10^6/uL (4.00-5.40); WHITE BLOOD COUNT 6.8 10^3/uL (4.0-10.0)
--- NOTE | 2021-05-12 15:20 | REP ---
INDICATION: DYSPNEA/COUGH COMPARISON: 12/25/2020 TECHNIQUE: Portable AP view of the chest FINDINGS: Stable cardiomegaly and pacemaker. Lung howe demonstrate chronic interstitial changes. No acute consolidation, effusion, or pneumothorax. Skeletal structures demonstrate age-related changes.. IMPRESSION: No acute cardiopulmonary process appreciated. <Electronically signed by Malvin Gandhi > 05/12/21 [id number]
[2021-05-12 15:40] LABS: ALBUMIN 3.2 GM/DL (3.2-5.2); ALT/SGPT 36 U/L (12-78); BILIRUBIN,DIRECT 0.1 MG/DL (0.0-0.2); BILIRUBIN,TOTAL 0.3 MG/DL (0.2-1.0); BLOOD UREA NITROGEN 14 MG/DL (7-18); CALCIUM LEVEL 8.8 MG/DL (8.8-10.2); CARBON DIOXIDE LEVEL 26 MEQ/L (21-32); CHLORIDE LEVEL 109 MEQ/L (98-107); CK-MB VALUE MASS 1.5 NG/ML (<3.6); CPK CREATINE PHOSPHOKINASE 57 U/L (26-192); CREATININE FOR GFR 0.74 MG/DL (0.55-1.30); GLOMERULAR FILTRATION RATE > 60.0 (>32); GLUCOSE, FASTING 92 MG/DL (70-100); MB/CK RELATIVE INDEX 2.63 (< OR =4); NT-PRO BNP 4344 PG/ML (<450); POTASSIUM SERUM 4.3 MEQ/L (3.5-5.1); SODIUM LEVEL 140 MEQ/L (136-145); TOTAL PROTEIN 7.5 GM/DL (6.4-8.2); TROPONIN I < 0.02 NG/ML (< 0.10)
[2021-05-12] MEDS ORDERED: ISOVUE-370 76% 100ML VIAL As Ordered ONE (16:16)
--- NOTE | 2021-05-12 16:46 | REP ---
INDICATION: SOB, elev d-dimer, eval for PE COMPARISON: 02/13/2011 TECHNIQUE: Axial contrast enhanced images from the thoracic inlet to the upper abdomen using pulmonary embolus technique with multiplanar re-formations. 75 ml Isovue 370 intravenous contrast material administered without complication. This CT examination was performed using the following dose reduction techniques: Automated exposure control, adjustment of mA and/or kv according to the patient's size, and use of iterative reconstruction technique. FINDINGS: Satisfactory enhancement of the pulmonary vasculature is achieved and no filling defects are identified to suggest pulmonary embolus. Atherosclerotic changes to the thoracic aorta and coronary arteries noted. Thoracic ascending aorta measuring 4.7 cm diameter tapering to 3.3 cm along the mid to distal descending thoracic aorta. Cardiomegaly is also appreciated with left atrial and left ventricular enlargement. No pericardial effusion. The bilateral lung howe demonstrate advanced COPD/emphysematous changes with scattered fibrosis and scarring. No acute consolidation. No effusion. No pneumothorax. Tracheobronchial tree is patent. No adenopathy. Musculoskeletal structures demonstrate degenerative changes. IMPRESSION: 1. No evidence for pulmonary embolus. 2. Cardiomegaly and chronic cardiac dysfunction. 3. Advanced COPD/emphysematous changes without acute pulmonary process. <Electronically signed by Malvin Gandhi > 05/12/21 0323
[2021-05-12] MEDS ORDERED: IPRATROPIUM 0.5MG/ALBUTEROL 2.5MG INH SOL UD 3ML (DUONEB) NEB ONE (18:35)
[2021-05-12] MEDS ORDERED: dexameTHASONE 20MG/5ML VIAL (J1100 PER 1MG) IV ONE (18:35)
--- NOTE | 2021-05-12 19:18 | ECGEPIP ---
[facility] - ED Test Date: 2021-05-12 Pat Name: BILLIE RUIZ Department: Room: - Gender: Female Orthopedic Coder: ED : 1940 Requested By: FAITH AVILES Order Number: [id number] Reading MD: Mandy Correa Measurements Intervals [place] Rate: 69 P: 20 UT: 154 QRS: -36 QRSD: 94 T: -26 QT: 412 QTc: 441 Interpretive Statements Atrial-paced rhythm with occasional premature ventricular complexes and premature atrial complexes Left axis deviation Left ventricular hypertrophy ( R in aVL , Sokolow-Barriga , Rozet product , Romhilt-Saleem ) Cannot rule out Septal infarct , age undetermined Electronically Signed on 05-12-2021 19:17:46 EDT by Mandy Correa
[2021-05-12] MEDS ORDERED: PRED20TA PO (19:27)
[2021-05-12] MEDS ORDERED: ALBU8.5H INH (19:27)
[2021-05-12] MEDS ORDERED: COMBAER6 INH (19:27)
[2021-05-12 20:08] VITALS: BP 153/65
== END 2021-05-12 20:10 | disposition home or self-care (01) ==
LOC: M ED 13:40
DX: J44.0 Chronic obstructive pulmonary disease with (acute) lower respiratory infection (principal); I10 Essential (primary) hypertension; E03.9 Hypothyroidism, unspecified; F33.9 Major depressive disorder, recurrent, unspecified; F41.9 Anxiety disorder, unspecified; I25.10 Atherosclerotic heart disease of native coronary artery without angina pectoris; Z95.0 Presence of cardiac pacemaker; Z79.899 Other long term (current) drug therapy; Z79.890 Hormone replacement therapy; Z79.01 Long term (current) use of anticoagulants; Z88.0 Allergy status to penicillin; Z88.5 Allergy status to narcotic agent; F17.210 Nicotine dependence, cigarettes, uncomplicated
CPT/HCPCS: 71045; 71275; 80048; 80076; 82550; 82553; 82803; 83605; 83880; 84443; 84484; 85025; 85379; 87040; 87798; 93005; 93041; 94640; 96374; 99285; J1100; Q9967

== ENCOUNTER 2021-06-03 13:24 | Outpatient (CLI) | payer MEDICARE ==
[~2021-06-03] VITALS: Ht 160 cm; Wt 49.0 kg
[~2021-06-03 13:24] MED LIST changes: +ALBU8.5H INH; +COMBAER6 INH; +PRED20TA PO
[2021-06-03] MEDS ORDERED: ZOLEDRONIC ACID 5 MG in IV 1 EA IV ONE (13:30)
[2021-06-03 13:54] VITALS: BP 145/57
[2021-06-03 14:40] VITALS: BP 125/57
== END 2021-06-03 14:40 | disposition home or self-care (01) ==
LOC: M INFU 13:24
PROVIDERS: ATTEND Internal Medicine
DX: M81.0 Age-related osteoporosis without current pathological fracture (principal); Z88.0 Allergy status to penicillin; Z88.5 Allergy status to narcotic agent
CPT/HCPCS: 96365; J3489

== ENCOUNTER → 2021-06-14 | Outpatient (REF) | payer MEDICARE | LOC: M LAB REF 17:17 | PROVIDERS: ATTEND Dermatology | DX: L57.0 Actinic keratosis (principal); L57.8 Other skin changes due to chronic exposure to nonionizing radiation | CPT/HCPCS: 11104; 88305; G0463 ==

== ENCOUNTER → 2021-07-10 | Outpatient (CLI) | payer MEDICARE ==
--- NOTE | 2021-07-10 13:15 | REP ---
INDICATION: ATHEROSCLEROSIS COMPARISON: 01/07/2021. TECHNIQUE: Real time faulkner scale and Duplex Doppler evaluation of the bilateral lower extremity arterial vasculature using linear high frequency transducer. FINDINGS: Faulkner scale and duplex doppler images demonstrate moderate diffuse plaque. ANA right 0.86 and left 0.36. There are diffuse biphasic waveforms of the right lower extremity arterial structures. There is right profunda stenosis approximately 2-1. there is a patent bypass graft from mid right superficial femoral artery to popliteal artery. There is no new stenosis or occlusion in the right lower extremity. On the left, the inflow velocities are diminished compared to the prior exam, with diffuse monophasic waveforms and decreased velocities throughout the left lower extremity arterial structures. There is suspected stenosis of the inflow arterial structures superior to the common femoral artery. Peak systolic velocities (cm/sec) Common femoral artery: Right 242; Left 103 Profunda femoris: Right 350; Left 71 SFA (proximal): Right 142; Left 71 SFA (mid): Right 200; Left 85 SFA (distal): Right 76; Left 134 Popliteal artery: Right 100; Left 70 Tibioperoneal trunk: Right 103; Left 23 LEATHER BELT SHAPER (prox.): Right 34; Left 19 LEATHER BELT SHAPER (distal): Right 83; Left 31 Peroneal (prox.): Right 63; Left 25 Peroneal (dist.): Right 52; Left 18 LELO (prox.): Right 69; Left 33 LELO (distal): Right 82; Left 26 IMPRESSION: No significant change of the right lower extremity arterial structures, there is mild right profunda stenosis approximately 2-1 with a patent bypass graft from mid right superficial femoral artery to popliteal artery. No new stenosis or occlusion. On the left, there are new, significantly diffusely decreased velocities in the arterial structures, with diffuse monophasic waveforms. Suspect stenosis of inflow arterial structures superior to the left common femoral artery. <Electronically signed by Davis Faulkner > 07/10/21 1311
== END ==
LOC: M RAD 10:40
PROVIDERS: ATTEND Surgery Vascular Surgery
DX: I70.213 Atherosclerosis of native arteries of extremities with intermittent claudication, bilateral legs (principal)

== ENCOUNTER 2021-08-13 13:49 | Emergency (ER) | payer MEDICARE ==
[~2021-08-13] VITALS: Ht 162.6 cm; Wt 50.0 kg
[~2021-08-13 13:49] MED LIST changes: -D31000TA2 PO; +VITA100093 PO
[2021-08-13 17:07] VITALS: BP 149/84
== END 2021-08-13 17:10 | disposition home or self-care (01) ==
LOC: M ED 13:49
DX: R45.89 Other symptoms and signs involving emotional state (principal); J44.9 Chronic obstructive pulmonary disease, unspecified; I95.9 Hypotension, unspecified; G47.33 Obstructive sleep apnea (adult) (pediatric); M48.061 Spinal stenosis, lumbar region without neurogenic claudication; Z95.5 Presence of coronary angioplasty implant and graft; Z79.899 Other long term (current) drug therapy; Z79.890 Hormone replacement therapy; Z79.01 Long term (current) use of anticoagulants; Z88.0 Allergy status to penicillin; Z88.5 Allergy status to narcotic agent; F17.210 Nicotine dependence, cigarettes, uncomplicated; I70.213 Atherosclerosis of native arteries of extremities with intermittent claudication, bilateral legs
CPT/HCPCS: 99153; 99283; G0463

== ENCOUNTER → 2021-10-31 | Outpatient (REF) | payer MEDICARE ==
[2021-11-01 12:06] LABS: HEPATITIS B CORE ANTIBODY IGM NEGATIVE (NEGATIVE); HEPATITIS B SURFACE ANTIGEN NEGATIVE (NEGATIVE); HEPATITIS C VIRUS ABY INDEX 0.2 INDEX (<0.8)
== END ==
LOC: M LAB REF 10:17
PROVIDERS: ATTEND Internal Medicine
DX: R74.8 Abnormal levels of other serum enzymes (principal)

== ENCOUNTER → 2021-12-11 | Outpatient (CLI) | payer MEDICARE ==
[~2021-12-11] MED LIST changes: -ACET1TAB16 PO; +ACET300T48 PO
== END ==
LOC: M WHC 08:57
PROVIDERS: ATTEND Internal Medicine
DX: R74.01 Elevation of levels of liver transaminase levels (principal)

== ENCOUNTER 2022-02-17 21:43 | Emergency (ER) | payer MEDICARE ==
[~2022-02-17] VITALS: Ht 162.6 cm; Wt 51.4 kg
[2022-02-17] MEDS ORDERED: NS 500 ML IV ONE (22:15)
[2022-02-17] MEDS ORDERED: GI COCKTAIL 50ML BTL(HYOSCYAMINE/MAALOX/LIDOCAINE VISCOUS)(1:3:1) PO ONE (22:15)
[2022-02-17 23:01] LABS: BASO # 0.1 10^3/uL (0.0-0.2); BASO % 0.7 % (0.0-1.0); EOS # 0.1 10^3/uL (0.0-0.5); EOS % 0.9 % (0.0-3.0); HEMATOCRIT 40.1 % (36.0-47.0); HEMOGLOBIN 13.5 g/dl (12.0-15.5); LYMPH # 0.9 10^3/uL (1.5-5.0); LYMPH % 13.5 % (24.0-44.0); MEAN CORPUSCULAR HGB CONC 33.7 g/dl (32.0-36.5); MONO # 0.8 10^3/uL (0.0-0.8); MONO % 11.1 % (2.0-8.0); NEUTROPHILS # 4.9 10^3/uL (1.5-8.5); NEUTROPHILS % 73.5 % (36.0-66.0); PLATELET COUNT, AUTOMATED 131 10^3/uL (150-450); RED BLOOD COUNT 4.09 10^6/uL (4.00-5.40); WHITE BLOOD COUNT 6.7 10^3/uL (4.0-10.0)
[2022-02-17 23:23] LABS: ALT/SGPT 9 U/L (12-78); BILIRUBIN,TOTAL 0.7 MG/DL (0.2-1.0); BLOOD UREA NITROGEN 16 MG/DL (7-18); CALCIUM LEVEL 8.9 MG/DL (8.8-10.2); CARBON DIOXIDE LEVEL 24 MEQ/L (21-32); CHLORIDE LEVEL 113 MEQ/L (98-107); CREATININE FOR GFR 0.72 MG/DL (0.55-1.30); GLOMERULAR FILTRATION RATE > 60.0 (>32); GLUCOSE, FASTING 106 MG/DL (70-100); LIPASE 95 U/L (73-393); SODIUM LEVEL 143 MEQ/L (136-145); TOTAL PROTEIN 7.3 GM/DL (6.4-8.2)
[2022-02-17 23:25] LABS: CK-MB VALUE MASS 1.8 NG/ML (<3.6); MB/CK RELATIVE INDEX 4.19 (< OR =4)
[2022-02-18 00:59] LABS: CK-MB VALUE MASS 1.9 NG/ML (<3.6); MB/CK RELATIVE INDEX 3.96 (< OR =4)
[2022-02-18] MEDS ORDERED: ISOVUE-370 76% 100ML VIAL As Ordered ONE (01:18)
[2022-02-18] MEDS ORDERED: ONDANSETRON 4MG 2ML VIAL IV ONE (01:30)
[2022-02-18 02:38] LABS: MB/CK RELATIVE INDEX 2.47 (< OR =4)
[2022-02-18 02:45] VITALS: BP 113/53
== END 2022-02-18 03:31 | disposition home or self-care (01) ==
LOC: EDBD 21:43 → M ED 21:43
DX: K21.9 Gastro-esophageal reflux disease without esophagitis (principal); J44.9 Chronic obstructive pulmonary disease, unspecified; I73.9 Peripheral vascular disease, unspecified; Z79.899 Other long term (current) drug therapy; Z79.890 Hormone replacement therapy; Z79.01 Long term (current) use of anticoagulants; Z88.0 Allergy status to penicillin; Z88.5 Allergy status to narcotic agent; F17.210 Nicotine dependence, cigarettes, uncomplicated
CPT/HCPCS: 71045; 71275; 74177; 80053; 82550; 82553; 83690; 84484; 85025; 87486; 87581; 87633; 87798; 93005; 96361; 96374; 99284; J2405; Q9967

== ENCOUNTER → 2022-05-06 | Outpatient (CLI) | payer MEDICARE | LOC: M PAIN 13:00 | PROVIDERS: ATTEND Nurse Practitioner Family | DX: M54.50 Low back pain, unspecified (principal); M79.10 Myalgia, unspecified site; E03.9 Hypothyroidism, unspecified; G25.81 Restless legs syndrome; F17.210 Nicotine dependence, cigarettes, uncomplicated; Z95.0 Presence of cardiac pacemaker; Z86.59 Personal history of other mental and behavioral disorders; Z88.0 Allergy status to penicillin; Z88.5 Allergy status to narcotic agent; Z88.6 Allergy status to analgesic agent; Z79.01 Long term (current) use of anticoagulants; Z79.899 Other long term (current) drug therapy ==

== ENCOUNTER 2022-06-04 14:40 | Outpatient (CLI) | payer MEDICARE ==
[~2022-06-04] VITALS: Ht 162.6 cm; Wt 49.1 kg
[2022-06-04 14:40] VITALS: BP 138/60
[~2022-06-04 14:40] MED LIST changes: +CLOP75TA99 PO; -PLAV1TAB2 PO
[2022-06-04] MEDS ORDERED: CARB25TA18 PO (14:59)
[2022-06-04] MEDS ORDERED: BACL10TA2 PO (14:59)
[2022-06-04] MEDS ORDERED: THERTAB52 PO (14:59)
[2022-06-04] MEDS ORDERED: FURO20TA2 PO (14:59)
[2022-06-04] MEDS ORDERED: ZOLEDRONIC ACID 5 MG in IV 1 EA IV ONE (15:00)
[2022-06-04 15:25] VITALS: BP 121/58
== END 2022-06-04 15:25 | disposition home or self-care (01) ==
LOC: M INFU 14:40
PROVIDERS: ATTEND Internal Medicine
DX: M81.0 Age-related osteoporosis without current pathological fracture (principal); Z88.0 Allergy status to penicillin; Z88.5 Allergy status to narcotic agent; Z88.6 Allergy status to analgesic agent
CPT/HCPCS: 96365; J3489

== ENCOUNTER 2022-07-15 17:57 | Inpatient (IN) | payer MEDICARE ==
[~2022-07-15] VITALS: Ht 162.6 cm; Wt 51.0 kg
[~2022-07-15 17:57] MED LIST changes: +CARB25TA18 PO; +FURO20TA2 PO; +THERTAB52 PO
[2022-07-15 20:05] LABS: BASO # 0.1 10^3/uL (0.0-0.2); BASO % 0.8 % (0.0-1.0); EOS # 0.1 10^3/uL (0.0-0.5); EOS % 1.1 % (0.0-3.0); HEMATOCRIT 39.8 % (36.0-47.0); HEMOGLOBIN 12.9 g/dl (12.0-15.5); LYMPH % 15.8 % (24.0-44.0); MEAN CORPUSCULAR HEMOGLOBIN 32.5 pg (27.0-33.0); MEAN CORPUSCULAR HGB CONC 32.4 g/dl (32.0-36.5); MEAN CORPUSCULAR VOLUME 100.3 fl (80.0-96.0); MONO # 0.7 10^3/uL (0.0-0.8); NEUTROPHILS # 4.7 10^3/uL (1.5-8.5); PLATELET COUNT, AUTOMATED 149 10^3/uL (150-450); RED BLOOD COUNT 3.97 10^6/uL (4.00-5.40); WHITE BLOOD COUNT 6.5 10^3/uL (4.0-10.0)
[2022-07-15 20:24] LABS: CK-MB VALUE MASS 1.1 NG/ML (<3.6)
[2022-07-15 20:27] LABS: CPK CREATINE PHOSPHOKINASE 39 U/L (34-145); MB/CK RELATIVE INDEX 2.82 (< OR =4)
[2022-07-15] MEDS: BACLOFEN 10 MG TAB PO SCH (21:00)
[2022-07-15 21:53] LABS: BILIRUBIN,DIRECT 0.2 MG/DL (<0.4)
[2022-07-15 21:57] LABS: ALBUMIN 2.7 G/DL (3.2-5.2); ALKALINE PHOSPHATASE 117 U/L (46-116); ALT/SGPT 33 U/L (7.0-40); AST/SGOT 56 U/L (<34); BILIRUBIN,TOTAL 0.4 MG/DL (0.3-1.2); BLOOD UREA NITROGEN 23 MG/DL (9-23); CALCIUM LEVEL 8.4 MG/DL (8.3-10.6); CARBON DIOXIDE LEVEL 22 MMOL/L (20-31); CHLORIDE LEVEL 111 MMOL/L (98-107); CREATININE FOR GFR 0.71 MG/DL (0.55-1.30); GLOMERULAR FILTRATION RATE > 60.0 (>32); GLUCOSE, FASTING 87 MG/DL (74-106); POTASSIUM SERUM 4.4 MMOL/L (3.5-5.1); SODIUM LEVEL 141 MMOL/L (136-145); TOTAL PROTEIN 6.6 G/DL (5.7-8.2)
[2022-07-15] MEDS ORDERED: ISOVUE-370 76% 100ML VIAL As Ordered ONE (22:08)
[2022-07-15 22:44] LABS: CK-MB VALUE MASS < 1.0 NG/ML (<3.6)
[2022-07-15 22:49] LABS: CPK CREATINE PHOSPHOKINASE 38 U/L (34-145); MB/CK RELATIVE INDEX 2.63 (< OR =4)
[2022-07-16] MEDS ORDERED: FUROSEMIDE 20MG/2ML VIAL (J1940) IV ONE
[2022-07-16] MEDS ORDERED: ACETAMINOPHEN TAB 650MG DOSE (2X325MG) PO PRN (00:30)
[2022-07-16] MEDS ORDERED: VITMTA PO (01:51)
[2022-07-16] MEDS ORDERED: CARB-89 PO (01:51)
[2022-07-16] MEDS ORDERED: BACL10TA2 PO (01:51)
[2022-07-16] MEDS ORDERED: FURO20TA2 PO (01:51)
[2022-07-16] MEDS ORDERED: METO1TAB7 PO (01:51)
[2022-07-16] MEDS ORDERED: HOME MED LIST COMPLETE! XX SCH (01:55)
[2022-07-16] MEDS ORDERED: MIRALAX *UNIT DOSE* 17GM PACKET PO PRN (02:55)
[2022-07-16] MEDS: SINEMET 25-100 MG TAB PO SCH ×3 (06:24→21:14)
[2022-07-16] MEDS: LEVOTHYROXINE 100MCG TABLET (0.1MG) PO SCH (06:24)
[2022-07-16 06:27] LABS: BASO # 0.1 10^3/uL (0.0-0.2); BASO % 0.7 % (0.0-1.0); EOS # 0.1 10^3/uL (0.0-0.5); EOS % 0.8 % (0.0-3.0); HEMATOCRIT 39.5 % (36.0-47.0); HEMOGLOBIN 12.7 g/dl (12.0-15.5); LYMPH # 0.9 10^3/uL (1.5-5.0); LYMPH % 12.2 % (24.0-44.0); MEAN CORPUSCULAR HEMOGLOBIN 32.6 pg (27.0-33.0); MEAN CORPUSCULAR HGB CONC 32.2 g/dl (32.0-36.5); MEAN CORPUSCULAR VOLUME 101.3 fl (80.0-96.0); MONO # 0.7 10^3/uL (0.0-0.8); MONO % 8.5 % (2.0-8.0); NEUTROPHILS # 5.9 10^3/uL (1.5-8.5); NEUTROPHILS % 77.4 % (36.0-66.0); PLATELET COUNT, AUTOMATED 146 10^3/uL (150-450); WHITE BLOOD COUNT 7.6 10^3/uL (4.0-10.0)
[2022-07-16 06:33] LABS: INR 1.17; PROTHROMBIN TIME 15.1 SECONDS (12.5-14.5)
[2022-07-16 06:34] LABS: PARTIAL THROMBOPLASTIN TIME 31.5 SECONDS (24.8-34.2)
[2022-07-16 06:45] LABS: MAGNESIUM LEVEL 1.8 MG/DL (1.8-2.4)
[2022-07-16 06:47] LABS: FREE T4 1.92 NG/DL (0.89-1.76); THYROID STIMULATING HORMONE 0.399 uIU/ML (0.55-4.78)
[2022-07-16 06:50] LABS: BLOOD UREA NITROGEN 22 MG/DL (9-23); CALCIUM LEVEL 8.3 MG/DL (8.3-10.6); CARBON DIOXIDE LEVEL 24 MMOL/L (20-31); CHLORIDE LEVEL 110 MMOL/L (98-107); CREATININE FOR GFR 0.74 MG/DL (0.55-1.30); GLOMERULAR FILTRATION RATE > 60.0 (>32); GLUCOSE, FASTING 77 MG/DL (74-106); POTASSIUM SERUM 4.1 MMOL/L (3.5-5.1); SODIUM LEVEL 142 MMOL/L (136-145)
[2022-07-16] MEDS: METOPROLOL SUCC (TopROL XL) 50MG **XL** TAB PO SCH ×2 (09:00→09:25)
[2022-07-16] MEDS ORDERED: CLOPIDOGREL 75 MG TAB PO SCH (09:00)
[2022-07-16] MEDS ORDERED: FERROUS SULFATE 325MG TAB PO SCH (09:00)
[2022-07-16] MEDS: NICOTINE 7 MG/24 HR TRANSDERMAL TD SCH (09:00)
[2022-07-16] MEDS: PANTOPRAZOLE 40MG TAB (PROTONIX) PO SCH (09:24)
[2022-07-16] MEDS: APIXABAN 2.5 MG TAB (ELIQUIS) PO SCH ×2 (09:24→21:13)
[2022-07-16] MEDS: MULTIVITAMINS/MINERALS THERAP 1 TAB PO SCH (09:24)
[2022-07-16] MEDS: GABAPENTIN 400MG CAP PO SCH ×4 (09:24→21:14)
[2022-07-16] MEDS: FUROSEMIDE 20MG/2ML VIAL (J1940) IV SCH ×2 (09:25→16:26)
[2022-07-16] MEDS: rOPINIRole 2MG TAB PO SCH ×4 (11:34→22:32)
[2022-07-16 13:55] VITALS: BP 116/65
[2022-07-16 16:00] VITALS: BP 126/58
[2022-07-16 20:00] VITALS: BP 110/54
[2022-07-16] MEDS ORDERED: ATORVASTATIN 20 MG TAB PO SCH (21:00)
[2022-07-16] MEDS: BACLOFEN 10 MG TAB PO SCH (21:13)
[2022-07-17] VITALS: BP 111/52
[2022-07-17] MEDS ORDERED: RAMELTEON 8 MG TAB (ROZEREM) PO PRN (01:35)
[2022-07-17 04:00] VITALS: BP 100/50
[2022-07-17] MEDS: LEVOTHYROXINE 100MCG TABLET (0.1MG) PO SCH (06:16)
[2022-07-17] MEDS: SINEMET 25-100 MG TAB PO SCH (06:16)
[2022-07-17 08:00] VITALS: BP 113/64
[2022-07-17 08:55] LABS: HEMATOCRIT 38.3 % (36.0-47.0); HEMOGLOBIN 12.4 g/dl (12.0-15.5); MEAN CORPUSCULAR HEMOGLOBIN 32.6 pg (27.0-33.0); MEAN CORPUSCULAR HGB CONC 32.4 g/dl (32.0-36.5); MEAN CORPUSCULAR VOLUME 100.8 fl (80.0-96.0); PLATELET COUNT, AUTOMATED 144 10^3/uL (150-450); WHITE BLOOD COUNT 6.4 10^3/uL (4.0-10.0)
[2022-07-17 09:00] VITALS: BP 113/64
[2022-07-17] MEDS: METOPROLOL SUCC (TopROL XL) 50MG **XL** TAB PO SCH (09:00)
[2022-07-17] MEDS: NICOTINE 7 MG/24 HR TRANSDERMAL TD SCH (09:00)
[2022-07-17 09:05] LABS: ALBUMIN 2.6 G/DL (3.2-5.2); ALKALINE PHOSPHATASE 105 U/L (46-116); ALT/SGPT 12 U/L (7.0-40); AST/SGOT 42 U/L (<34); BILIRUBIN,TOTAL 0.5 MG/DL (0.3-1.2); BLOOD UREA NITROGEN 28 MG/DL (9-23); CALCIUM LEVEL 8.6 MG/DL (8.3-10.6); CARBON DIOXIDE LEVEL 23 MMOL/L (20-31); CHLORIDE LEVEL 110 MMOL/L (98-107); CREATININE FOR GFR 0.66 MG/DL (0.55-1.30); GLOMERULAR FILTRATION RATE > 60.0 (>32); GLUCOSE, FASTING 97 MG/DL (74-106); POTASSIUM SERUM 3.8 MMOL/L (3.5-5.1); SODIUM LEVEL 143 MMOL/L (136-145); TOTAL PROTEIN 6.4 G/DL (5.7-8.2)
[2022-07-17] MEDS: GABAPENTIN 400MG CAP PO SCH ×2 (09:12→13:11)
[2022-07-17] MEDS: MULTIVITAMINS/MINERALS THERAP 1 TAB PO SCH (09:12)
[2022-07-17] MEDS: FUROSEMIDE 20MG/2ML VIAL (J1940) IV SCH (09:12)
[2022-07-17] MEDS: APIXABAN 2.5 MG TAB (ELIQUIS) PO SCH (09:12)
[2022-07-17] MEDS: PANTOPRAZOLE 40MG TAB (PROTONIX) PO SCH (09:12)
[2022-07-17] MEDS: rOPINIRole 2MG TAB PO SCH ×2 (09:27→13:10)
[2022-07-17 12:00] VITALS: BP 114/61
== END 2022-07-17 14:45 | disposition home or self-care (01) | DRG 307 ==
LOC: M ED 17:57 → M ED INP 07-16 00:26 → ENRESERV 07-16 12:24 → M PCU 07-16 13:54
PROVIDERS: ADMIT Family Medicine; ATTEND Family Medicine
DX: I08.0 Rheumatic disorders of both mitral and aortic valves (principal); I25.10 Atherosclerotic heart disease of native coronary artery without angina pectoris; I71.40 Abdominal aortic aneurysm, without rupture, unspecified; I73.9 Peripheral vascular disease, unspecified; E78.5 Hyperlipidemia, unspecified; Z95.0 Presence of cardiac pacemaker; Z98.41 Cataract extraction status, right eye; Z98.42 Cataract extraction status, left eye; F17.200 Nicotine dependence, unspecified, uncomplicated; E87.70 Fluid overload, unspecified; R91.8 Other nonspecific abnormal finding of lung field; G47.33 Obstructive sleep apnea (adult) (pediatric); F41.9 Anxiety disorder, unspecified; F32.A Depression, unspecified; E03.9 Hypothyroidism, unspecified; D50.9 Iron deficiency anemia, unspecified; G25.81 Restless legs syndrome; Z20.822 Contact with and (suspected) exposure to COVID-19; Z79.01 Long term (current) use of anticoagulants; Z79.899 Other long term (current) drug therapy; Z88.0 Allergy status to penicillin; Z88.5 Allergy status to narcotic agent; Z88.8 Allergy status to other drugs, medicaments and biological substances; Z95.828 Presence of other vascular implants and grafts; Z79.890 Hormone replacement therapy; I50.9 Heart failure, unspecified

== ENCOUNTER 2022-07-19 18:01 | Observation (INO) | payer MEDICARE ==
[~2022-07-19] VITALS: Ht 162.6 cm; Wt 50.9 kg
[~2022-07-19 18:01] MED LIST changes: +CARB-89 PO; +METO1TAB7 PO; +VITMTA PO
[2022-07-19] MEDS ORDERED: FUROSEMIDE 20MG/2ML VIAL IV ONE (18:20)
[2022-07-19 18:54] LABS: BASO % 0.6 % (0.0-1.0); EOS # 0.1 10^3/uL (0.0-0.5); HEMATOCRIT 41.7 % (36.0-47.0); HEMOGLOBIN 13.3 g/dl (12.0-15.5); LYMPH # 1.3 10^3/uL (1.5-5.0); LYMPH % 18.4 % (24.0-44.0); MEAN CORPUSCULAR HEMOGLOBIN 32.7 pg (27.0-33.0); MEAN CORPUSCULAR HGB CONC 31.9 g/dl (32.0-36.5); MEAN CORPUSCULAR VOLUME 102.5 fl (80.0-96.0); MONO # 0.7 10^3/uL (0.0-0.8); MONO % 10.2 % (2.0-8.0); NEUTROPHILS # 4.7 10^3/uL (1.5-8.5); NEUTROPHILS % 69.5 % (36.0-66.0); PLATELET COUNT, AUTOMATED 163 10^3/uL (150-450); RED BLOOD COUNT 4.07 10^6/uL (4.00-5.40); WHITE BLOOD COUNT 6.8 10^3/uL (4.0-10.0)
[2022-07-19 19:06] LABS: INR 1.14; PROTHROMBIN TIME 14.8 SECONDS (12.5-14.5)
[2022-07-19] MEDS ORDERED: ISOVUE-370 76% 100ML VIAL As Ordered ONE (19:06)
[2022-07-19 19:17] LABS: BILIRUBIN,DIRECT 0.1 MG/DL (<0.4)
[2022-07-19 19:25] LABS: ALBUMIN 2.9 G/DL (3.2-5.2); ALKALINE PHOSPHATASE 120 U/L (46-116); ALT/SGPT 40 U/L (7.0-40); AST/SGOT 53 U/L (<34); BILIRUBIN,TOTAL 0.4 MG/DL (0.3-1.2); BLOOD UREA NITROGEN 23 MG/DL (9-23); CALCIUM LEVEL 8.8 MG/DL (8.3-10.6); CARBON DIOXIDE LEVEL 22 MMOL/L (20-31); CHLORIDE LEVEL 111 MMOL/L (98-107); CK-MB VALUE MASS < 1.0 NG/ML (<3.6); CPK CREATINE PHOSPHOKINASE 41 U/L (34-145); CREATININE FOR GFR 0.67 MG/DL (0.55-1.30); GLOMERULAR FILTRATION RATE > 60.0 (>32); GLUCOSE, FASTING 152 MG/DL (74-106); MB/CK RELATIVE INDEX 2.43 (< OR =4); POTASSIUM SERUM 5.3 MMOL/L (3.5-5.1); SODIUM LEVEL 140 MMOL/L (136-145); THYROID STIMULATING HORMONE 0.711 uIU/ML (0.55-4.78); THYROXINE (T4) 16.5 UG/DL (4.5-10.9); TOTAL PROTEIN 6.9 G/DL (5.7-8.2)
[2022-07-19 20:31] LABS: CK-MB VALUE MASS < 1.0 NG/ML (<3.6)
[2022-07-19 20:35] LABS: CPK CREATINE PHOSPHOKINASE 47 U/L (34-145); MB/CK RELATIVE INDEX 2.12 (< OR =4)
[2022-07-19] MEDS ORDERED: ACETAMINOPHEN TAB 650MG DOSE (2X325MG) PO PRN (21:50)
[2022-07-19] MEDS ORDERED: ALPRAZolam 0.25 MG TAB PO PRN (22:05)
[2022-07-19] MEDS ORDERED: PILL CUTTER 1 EACH XX PRN (22:10)
[2022-07-19] MEDS ORDERED: ATOR40TA75 PO (22:29)
[2022-07-19] MEDS ORDERED: HOME MED LIST COMPLETE! XX SCH (22:40)
[2022-07-19] MEDS: APIXABAN 2.5 MG TAB (ELIQUIS) PO SCH (23:07)
[2022-07-20 02:34] VITALS: BP 120/57
[2022-07-20] MEDS ORDERED: SINEMET 25-100 MG TAB PO SCH (06:00)
[2022-07-20] MEDS ORDERED: LEVOTHYROXINE 100MCG TABLET (0.1MG) PO SCH (06:00)
[2022-07-20] MEDS ORDERED: rOPINIRole 2MG TAB PO SCH (07:00)
[2022-07-20] MEDS ORDERED: GABAPENTIN 400MG CAP PO SCH (07:00)
[2022-07-20 08:36] LABS: BLOOD UREA NITROGEN 23 MG/DL (9-23); CALCIUM LEVEL 8.7 MG/DL (8.3-10.6); CARBON DIOXIDE LEVEL 28 MMOL/L (20-31); CHLORIDE LEVEL 107 MMOL/L (98-107); CREATININE FOR GFR 0.74 MG/DL (0.55-1.30); GLOMERULAR FILTRATION RATE > 60.0 (>32); GLUCOSE, FASTING 83 MG/DL (74-106); SODIUM LEVEL 141 MMOL/L (136-145)
[2022-07-20] MEDS: APIXABAN 2.5 MG TAB (ELIQUIS) PO SCH (08:51)
[2022-07-20] MEDS ORDERED: LEXA5TAB13 PO (08:56)
[2022-07-20] MEDS ORDERED: APIXABAN 2.5 MG TAB (ELIQUIS) PO SCH (09:00)
[2022-07-20] MEDS ORDERED: CLOPIDOGREL 75 MG TAB PO SCH (09:00)
[2022-07-20] MEDS ORDERED: MULTIVITAMINS/MINERALS THERAP 1 TAB PO SCH (09:00)
[2022-07-20] MEDS ORDERED: PANTOPRAZOLE 40MG TAB (PROTONIX) PO SCH (09:00)
[2022-07-20] MEDS ORDERED: FUROSEMIDE 20 MG TAB PO SCH (09:00)
[2022-07-20 09:06] VITALS: BP 110/58
[2022-07-20] MEDS ORDERED: ATORVASTATIN 20 MG TAB PO SCH (21:00)
[2022-07-20] MEDS ORDERED: METOPROLOL SUCC (TopROL XL) 50MG **XL** TAB PO SCH (21:00)
[2022-07-21] MEDS ORDERED: FERROUS SULFATE 325MG TAB PO SCH (09:00)
== END 2022-07-20 10:00 | disposition home or self-care (01) ==
LOC: M ED 18:01 → EDBD 18:01 → M ED INP 18:02
PROVIDERS: ADMIT Internal Medicine; ATTEND Internal Medicine
DX: R53.1 Weakness (principal); R06.00 Dyspnea, unspecified; I71.20 Thoracic aortic aneurysm, without rupture, unspecified; R91.8 Other nonspecific abnormal finding of lung field; I51.7 Cardiomegaly; I50.89 Other heart failure; I48.91 Unspecified atrial fibrillation; G20 Parkinson's disease; E03.9 Hypothyroidism, unspecified; K21.9 Gastro-esophageal reflux disease without esophagitis; Z95.0 Presence of cardiac pacemaker; Z79.899 Other long term (current) drug therapy; Z79.01 Long term (current) use of anticoagulants; Z79.02 Long term (current) use of antithrombotics/antiplatelets; Z79.890 Hormone replacement therapy; Z88.0 Allergy status to penicillin; Z88.5 Allergy status to narcotic agent
CPT/HCPCS: 36415; 71045; 71275; 80047; 80048; 80076; 82550; 82553; 82803; 83605; 83880; 84436; 84443; 84484; 85025; 85610; 85730; 87040; 87486; 87581; 87633; 87798; 93005; 93041; 94760; 96374; 99285; G0378; J1940; Q9967